=== PATIENT | male | born 1985 | race Caucasian/White ===

== ENCOUNTER → 2019-09-08 10:40 | Outpatient (BNVA) | payer OTHER, SELFPAY | PROVIDERS: Family Provider Emergency Medicine Emergency Medical Services; PCP Emergency Medicine Emergency Medical Services; Visit Provider Nurse Practitioner Family | DX: R50.9 Fever, unspecified (principal); W57.XXXA Bitten or stung by nonvenomous insect and other nonvenomous arthropods, initial encounter; Z68.32 Body mass index [BMI] 32.0-32.9, adult; F17.220 Nicotine dependence, chewing tobacco, uncomplicated; Z71.89 Other specified counseling | CPT/HCPCS: 71046; 87071; 87400; 87880 ==

== ENCOUNTER 2020-01-01 12:43 | Outpatient (CLI) | payer OTHER, SELFPAY ==
--- NOTE | 2020-01-01 12:48 | MR_ITS ---
WS: [id number] MRI LUMBAR SPINE NONCONTRAST HISTORY: LOW BACK PAIN COMPARISON: None available. TECHNIQUE: Sagittal and axial multisequence imaging is submitted. Mild ectopia of the cerebellar tonsils. Mild disc bulging at T11-12 and T12-L1 with minimal cord contact at the T11-12 level. No significant stenosis. Normal lumbar alignment with no compression fractures or marrow edema. Disc spaces and vertebral body heights are well-preserved. Conus terminates normally at L1. L1-L2: Normal. L2-L3: Normal. L3-L4: Mild facet and ligamentum flavum hypertrophy and annular disc bulging. No stenosis. L4-L5: Mild annular disc bulging with moderate ligamentum flavum hypertrophy and facet arthritis. No significant stenosis. L5-S1: Small central disc protrusion and mild annular disc bulging. There is very minimal encroachmen t and narrowing of the RIGHT subarticular recess. There is probably a small disc protrusion with asso ciated annular fissure. Mild ligamentum flavum hypertrophy and facet arthritis. There is very minimal encroachment into the RIGHT subarticular recess. No significant stenosis. Visualized retroperitoneum is negative. MR/MR lumbar spine wo con* [id number] IMPRESSION: 1. No severe central or foraminal stenosis. 2. Mild RIGHT subarticular recess encroachment at L5-S1. Suspect there is a ve ry small disc protrusion and annular fissure causing mild encroachment upon the S1 nerve root. 3. Mild encroachment upon the ventral thecal sac at T11-12.
== END 2020-01-01 12:44 | disposition home or self-care (01) ==
LOC: RADSHAW 12:44
PROVIDERS: PCP Emergency Medicine Emergency Medical Services; Visit Provider Emergency Medicine Emergency Medical Services
DX: M54.5 Low back pain (principal)
CPT/HCPCS: 72148

== ENCOUNTER → 2020-03-17 09:48 | Outpatient (BNVA) | payer OTHER, SELFPAY | PROVIDERS: PCP Emergency Medicine Emergency Medical Services; Visit Provider Licensed Practical Nurse | DX: M51.17 Intervertebral disc disorders with radiculopathy, lumbosacral region (principal); M51.9 Unspecified thoracic, thoracolumbar and lumbosacral intervertebral disc disorder; F17.290 Nicotine dependence, other tobacco product, uncomplicated | CPT/HCPCS: 99204 ==

== ENCOUNTER 2020-03-19 12:48 | Outpatient (CLI) | payer OTHER, SELFPAY ==
--- NOTE | 2020-03-19 13:06 | XR_ITS ---
WS: [id number] Lumbar spine with flexion, extension, and neutral lateral, 03/19/2020 Clinical Data: LOW BACK PAIN Comparison: MRI lumbar spine, 01/01/2020. Findings: No compression fractures or subluxation is seen. No disc space narrowing is seen. No limitation of motion or subluxation is seen. Minimal anterior osteoarthritic spurring is seen at L4 and L5. XR/XR lumbar spine f/e only [id number] Impression: Negative for limitation of motion or subluxation on flexion or extension.
== END 2020-03-19 12:49 | disposition home or self-care (01) ==
LOC: RADWPI 12:52
PROVIDERS: PCP Emergency Medicine Emergency Medical Services; Visit Provider Nurse Practitioner
DX: M54.5 Low back pain (principal)
CPT/HCPCS: 72120

== ENCOUNTER 2020-03-19 13:55 | Outpatient (RCR) | payer OTHER, SELFPAY | END 2020-04-05 23:59 | disposition home or self-care (01) | LOC: SPT 13:55 | PROVIDERS: PCP Emergency Medicine Emergency Medical Services; Visit Provider Emergency Medicine Emergency Medical Services | DX: M54.16 Radiculopathy, lumbar region (principal) | CPT/HCPCS: 97110; 97161 ==

== ENCOUNTER 2020-04-06 06:00 | Outpatient (RCR) | payer OTHER, SELFPAY | END 2020-05-06 23:59 | disposition home or self-care (01) | LOC: SPT 06:00 | PROVIDERS: PCP Emergency Medicine Emergency Medical Services; Visit Provider Emergency Medicine Emergency Medical Services | DX: M54.16 Radiculopathy, lumbar region (principal) | CPT/HCPCS: 97110 ==

== ENCOUNTER 2020-05-07 06:00 | Outpatient (RCR) | payer OTHER, SELFPAY | END 2020-06-06 23:59 | disposition home or self-care (01) | LOC: SPT 06:00 | PROVIDERS: PCP Emergency Medicine Emergency Medical Services; Visit Provider Emergency Medicine Emergency Medical Services | DX: M54.16 Radiculopathy, lumbar region (principal) | CPT/HCPCS: 97110 ==

== ENCOUNTER 2020-06-07 06:00 | Outpatient (RCR) | payer OTHER, SELFPAY | END 2020-06-18 23:00 | disposition home or self-care (01) | LOC: SPT 06:00 | PROVIDERS: PCP Emergency Medicine Emergency Medical Services; Visit Provider Emergency Medicine Emergency Medical Services | DX: M54.16 Radiculopathy, lumbar region (principal) | CPT/HCPCS: 97110 ==

== ENCOUNTER → 2020-06-15 09:48 | Outpatient (BNVA) | payer OTHER, SELFPAY | PROVIDERS: PCP Emergency Medicine Emergency Medical Services; Visit Provider Specialist | DX: M51.17 Intervertebral disc disorders with radiculopathy, lumbosacral region (principal); G43.711 Chronic migraine without aura, intractable, with status migrainosus; M46.1 Sacroiliitis, not elsewhere classified; F17.220 Nicotine dependence, chewing tobacco, uncomplicated | CPT/HCPCS: 99214 ==

== ENCOUNTER 2020-08-30 14:43 | Emergency (ER) | payer OTHER, SELFPAY ==
[2020-08-30 14:47] VITALS: BP 144/91; PULSE 86; RESP 18; TEMP 36.4; O2SAT 96; BMI 30.7
[2020-08-30 17:16] VITALS: BP 145/78; PULSE 75; RESP 16; O2SAT 96
--- NOTE | 2020-08-30 17:16 | ED_ITS ---
HPI - General Adult General: Chief complaint: Abdominal Pain Stated complaint: Poss Hernia Time Seen by Provider: 08/30/20 17:06 History of Present Illness: HPI narrative: Patient strained his upper abdomen muscle wall the other day at work. He did not report work that time. Does continue to bother him with lifting and movement at work and he is worried that he might have a hernia. He has had a hernia in the past that had to be repaired and this is above that area. 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 Surgical History History of hernia surgery History of vasectomy Family History Mother Mcnamara's palsy Social History Smoking and tobacco status: current every day smoker smokeless tobacco Alcohol intake: current service: Yes History of recent travel: No Physical Exam Const: COMMON NORMALS: no acute distress, average body habitus and patient oriented x3 HENMT: COMMON NORMALS: normocephalic HEAD & SCALP: normal to inspection and normocephalic FACE & SINUS: normal facial exam Eye: COMMON NORMALS: conjunctivae normal GENERAL EYE: appearance normal, both eyes and all related structures CONJUNCTIVA: Yes conjunctivae normal Neck/C-Spine: COMMON NORMALS: no JVD Chest: COMMONS NORMALS: normal inspection of the chest Resp: COMMON NORMALS: normal respiratory effort Cardio: COMMON NORMALS: no JVD, regular rate and regular rhythm RATE: regular rate RHYTHM: regular rhythm GI: PALPATION: Yes Tenderness to palpation present (GI) (Under the muscle wall above the umbilicus about 2 inches up and around epig) OTHER: Muscle wall is tender no visible hernia noted Extremity: COMMON NORMALS: normal to inspection and full ROM Neuro: COMMON NORMALS: patient oriented x3 Course Vital Signs: Vital signs: Vital Signs Temperature 97.5 F L 08/30/20 14:47 Pulse Rate 86 08/30/20 14:47 Respiratory Rate 18 08/30/20 14:47 Blood Pressure 144/91 08/30/20 14:47 Pulse Oximetry 96 08/30/20 14:47 MDM - General Adult MDM Narrative: Medical decision making narrative: Presents with a injury that occurred about a week ago worried about having a hernia. Patient does not have a hernia on exam muscle wall intact but it is tender. Discharge Plan Discharge Patient Disposition: Home Clinical Impression: Abdominal muscle strain Qualifiers: Encounter type: initial encounter Qualified Code(s): S39.011A - Strain of muscle, fascia and tendon of abdomen, initial encounter Condition: Stable Prescriptions: New tramadol 50 mg tablet 50 mg PO TID PRN (Reason: pain) Qty: 7 RF: 0 No Action amitriptyline 25 mg tablet 25 mg PO DAILY Qty: 30 RF: 2 meloxicam 15 mg tablet 15 mg PO DAILY RF: 0 omeprazole magnesium [Prilosec OTC] 20 mg tablet,delayed release (DR/EC) 20 mg PO DAILY RF: 0 Discharge Orders: Discharge ED (Routine); Ordered 08/30/20 Ordered By: Cayden Rowan Referrals: Gaetano Reagan DO [Primary Care Provider] - Discharge Diet: Usual diet Discharge Activity: Increase activity as tolerated Patient Instructions: Muscle Strain (ED), Opioid Safety Activity Restrictions/Additional Instructions: Follow-up with medical provider as directed. Take medications as prescribed. Return to the ER or your medical provider if condition worsens. Please read and understand discharge instructions. If any questions ask please. Avoid heavy lifting and straining abdominal muscles for next 14 to 21 days. Can apply moist heat to help with discomfort. Coding Level of Care Code ED Job Spotter for Susanna Christian
[2020-08-30 17:18] LABS: Basophils % 0.3 %; Eosinophils # 0.3 10^3/uL (0.0-0.8); Eosinophils % 3.1 %; Hematocrit 48.7 % (42.0-52.0); Hemoglobin 16.5 g/dL (11.7-16.6); Lymphocytes % 43.6 %; Mean Corpuscular HGB Conc 33.9 g/dL (30.0-36.0); Mean Corpuscular Hemoglobin 28.8 pg (28.0-34.0); Mean Platelet Volume 9.2 fL (7.4-10.4); Monocytes # 0.9 10^3/uL (0.2-0.9); Monocytes % 9.9 %; Neutrophils # 3.92 10^3/uL (1.8-7.7); Neutrophils % 42.9 %; Nucleated Red Blood Cells % 0 %; Platelet Count 260 10^3/cmm (130-400); Red Blood Count 5.73 10^6/uL (4.1-5.3); Red Cell Distribution Width 12.1 % (12.1-15.1); White Blood Count 9.1 10^3/uL (4.0-10.0)
[2020-08-30 17:43] LABS: Lactic Sepsis W/Reflex 1.3 mmol/L (0.5-2.2)
[2020-08-30 17:48] LABS: Alanine Aminotransferase 31 U/L (0-41); Albumin Level 4.5 g/dL (3.5-5.2); Alkaline Phosphatase 44 IU/L (40-130); Anion Gap 13.9 (5-19); Aspartate Amino Transferase 20 U/L (0-40); Blood Urea Nitrogen 17 mg/dL (6-20); Carbon Dioxide 27 mmol/L (22-29); Chloride 103 mmol/L (98-107); Globulin 2.1 g/dL (1.3-4.6); Glomerular Filtration Rate 109.4 mL/min (90-130); Glucose 97 mg/dL (65-115); Osmolality Calculated 291 mOsm/kg (285-295); Potassium 3.9 mmol/L (3.5-5.1); Sodium 140 mmol/L (136-145); Total Bilirubin 0.5 mg/dL (0.15-1.2); Total Protein 6.6 g/dL (6.6-8.7)
== END 2020-08-30 17:22 | disposition home or self-care (01) ==
PROVIDERS: Physician Assistant; Emergency Provider Nurse Practitioner Family; PCP Emergency Medicine Emergency Medical Services
DX: S39.011A Strain of muscle, fascia and tendon of abdomen, initial encounter (principal); F17.210 Nicotine dependence, cigarettes, uncomplicated; X58.XXXA Exposure to other specified factors, initial encounter; Y99.0 Civilian activity done for income or pay
CPT/HCPCS: 80053; 83605; 85025; 99282

== ENCOUNTER → 2020-09-07 07:49 | Outpatient (BNVA) | payer OTHER, SELFPAY | PROVIDERS: PCP Emergency Medicine Emergency Medical Services; Visit Provider Specialist | DX: M51.17 Intervertebral disc disorders with radiculopathy, lumbosacral region (principal); G43.711 Chronic migraine without aura, intractable, with status migrainosus; F17.220 Nicotine dependence, chewing tobacco, uncomplicated | CPT/HCPCS: 99214 ==

== ENCOUNTER 2021-02-16 15:43 | Outpatient (CLI) | payer OTHER, SELFPAY ==
--- NOTE | 2021-02-16 15:45 | USCV_ITS ---
Javi Montes De Oca Age: 36 Gender: M : 1985 Exam Date: 02/16/2021 15:56 Ordering Phys: Patrick Epstein M.D ([email or web address]) Technologist: Eugenie Somers [place] [facility] [place] PALPIT[place] BP: 151 / 90 HR: 78 Rhythm: Sinus Technical Quality: Adequate MEASUREMENTS (Male / Female) Normal Values 2D ECHO LV Diastolic Diameter PLAX 5.0 cm 4.2 - 5.9 / 3.9 - 5.3 cm LV Systolic Diameter PLAX 3.3 cm IVS Diastolic Thickness 0.7 cm 0.6 - 1.0 / 0.6 - 0.9 cm IVS Systolic Thickness 1.8 cm LVPW Diastolic Thickness 1.2 cm 0.6 - 1.0 / 0.6 - 0.9 cm LVPW Systolic Thickness 1.7 cm LVOT Diameter 2.0 cm LV Ejection Fraction 2D Teich 63.3 % LV Ejection Fraction MOD 2C 66.6 % LV Ejection Fraction 2C AL 67.3 % LA Diameter 3.5 cm LA Width 2.9 cm LA Height 3.9 cm RA Width 2.5 cm RA Height 3.7 cm Aorta at Sinotubular Diameter 2.8 cm DOPPLER AV Peak Velocity 107.0 cm/s LVOT Peak Velocity 81.0 cm/s AV Area Cont Eq vti 2.7 cm squared AV Area Cont Eq pk 2.4 cm squared MV Peak Velocity 76.0 cm/s MV Area PHT 3.6 cm squared Mitral E to A Ratio 1.3 MV E' Velocity 39.0 cm/s Mitral E to MV E' Ratio 7.4 Mitral E to LV E' Lateral Ratio 7.4 Mitral E to LV E' Septal Ratio 7.5 TR Peak Velocity 193.3 cm/s TR Peak Gradient 14.9 mmHg TR Mean Velocity 150.9 cm/s TR Mean Gradient 10.4 mmHg TR Velocity Time Integral 47.1 cm TV Peak E Velocity 56.0 cm/s Right Atrial Pressure 3.0 mmHg Pulmonary Artery Systolic Pressu 17.9 mmHg PV Peak Velocity 99.0 cm/s RV Acceleration Time 0.1 s RV Ejection Time 0.3 s RV AcT/ET 0.3 FINDINGS Left Ventricle Normal left ventricular size. LV systolic function is normal with EF of 55-60%. No regional wall motion abnormalities. Normal diastolic filling pattern. Right Ventricle The right ventricle is normal in size and function. Right Atrium The right atrium is normal in size. Left Atrium The left atrium is normal in size. Mitral Valve Structurally normal mitral valve without significant stenosis or prolapse. There is trace mitral regurgitation. Aortic Valve Structurally normal aortic valve without significant sclerosis or stenosis. There is no aortic regurgitation. Tricuspid Valve Structurally normal tricuspid valve without significant stenosis or regurgitation. Insufficient TR jet to calculate RVSP Pulmonic Valve Structurally normal pulmonic valve without significant stenosis. There is no pulmonic regurgitation. Pericardium Normal pericardium without effusion. Aorta Normal ascending aorta dimension. CONCLUSIONS LV systolic function is normal with EF of 55-60% Diastolic function is normal Trace mitral regurgitation No comparison studies are available Patrick Epstein MD (Electronically Signed) Final Date: 19 February 2021 21:40 S
== END 2021-02-16 15:44 | disposition home or self-care (01) ==
LOC: RAD 15:44
PROVIDERS: PCP Emergency Medicine Emergency Medical Services; Visit Provider Internal Medicine
DX: R00.2 Palpitations (principal)
CPT/HCPCS: 93306

== ENCOUNTER → 2021-03-03 10:36 | Outpatient (BNVA) | payer OTHER, SELFPAY | PROVIDERS: PCP Emergency Medicine Emergency Medical Services; Visit Provider Specialist | DX: G43.711 Chronic migraine without aura, intractable, with status migrainosus (principal); Z87.891 Personal history of nicotine dependence | CPT/HCPCS: 99213; 99214 ==

== ENCOUNTER → 2021-07-08 14:41 | Outpatient (BNVA) | payer OTHER, SELFPAY | PROVIDERS: PCP Emergency Medicine Emergency Medical Services; Visit Provider Social Worker | DX: F41.1 Generalized anxiety disorder (principal); F33.1 Major depressive disorder, recurrent, moderate | CPT/HCPCS: 90837 ==

== ENCOUNTER → 2021-09-09 15:50 | Outpatient (BNVA) | payer OTHER, SELFPAY | PROVIDERS: PCP Emergency Medicine Emergency Medical Services; Visit Provider Social Worker | DX: F41.1 Generalized anxiety disorder (principal); F33.1 Major depressive disorder, recurrent, moderate | CPT/HCPCS: 90834 ==

== ENCOUNTER → 2021-10-07 15:50 | Outpatient (BNVA) | payer OTHER, SELFPAY | PROVIDERS: PCP Emergency Medicine Emergency Medical Services; Visit Provider Social Worker | DX: F41.1 Generalized anxiety disorder (principal); F33.1 Major depressive disorder, recurrent, moderate | CPT/HCPCS: 90834 ==

== ENCOUNTER → 2021-11-24 15:39 | Outpatient (BNVA) | payer OTHER, SELFPAY | PROVIDERS: PCP Emergency Medicine Emergency Medical Services; Visit Provider Urology | DX: N50.89 Other specified disorders of the male genital organs (principal) | CPT/HCPCS: 81003; 99213 ==

== ENCOUNTER 2022-03-13 06:16 | Day surgery (SDC) | payer OTHER, SELFPAY ==
[2022-03-10 12:27] VITALS: BMI 32.1
[2022-03-13 06:36] VITALS: BP 128/78; PULSE 65; RESP 16; TEMP 36.2; O2SAT 97
--- NOTE | 2022-03-13 06:38 | P.ANESASSM_ITS ---
Pre-Anesthetic Assessment Height/Weight: Height 1.8 m Weight 104.326 kg Preop Diagnosis: GERD Operation Date: 03/13/22 08:00 Proposed Procedures p EGD 88435 K21.9(Not Applicable) - Eyad Aguila MD Familial anesthetic complications: None Was Beta Conor taken within 24 hours: N/A Was Clonidine taken within 24 hours: N/A Last Intake: 22:00 (03/12) Social Alcohol (Social) and Tobacco (Dip) Exam alert, oriented x 3, clear to auscultation bilaterally and regular rate & rhythm Airway Submandibular: within normal limits (TMJ) Cervical ROM: within normal limits Mallampati: Class III Dentition: chipped (Front teeth have been broken but fixed now. 3 chipped teeth per patient) History/ROS No significant history except as noted and No significant complaints Pulmonary Sleep Apnea CV/HEM None reported None reported Hepatic None reported GI Gastroesophageal Reflux Disease (Controlled with meds, none this am) Metabolic None reported Musc/skel Lower Back Pain Neuropsych None reported Anesthetic Plan ASA status: 1 Anesthesia: Anesthesia Evaluation, General and MAC Risk of > 500 ml blood loss (7ml/kg in children): No Medications/Allergies Home Medications Medication Instructions Recorded Confirmed Last Taken Type omeprazole magnesium 20 mg 20 mg PO DAILY 11/24/21 03/13/22 03/12/22 History tablet,delayed release (Prilosec OTC) Allergies Allergy/AdvReac Type Severity Reaction Status Date / Time No Known Allergies Allergy Verified 11/24/21 15:42 [facility] Anesthesia Medical History (Updated 03/09/22 @ 12:01 by Marissa Quiroz LPN) Intervertebral disc disorder with radiculopathy of lumbosacral region Psychiatric care Thoracic disc disease Surgical History History of hernia surgery History of vasectomy Family History Mother Mcnamara's palsy Social History Smoking and tobacco status: never smoked Alcohol intake: current Alcohol intake frequency: holidays/special occasions only Marital status: service: Yes Current occupational status: employed History of recent travel: No Data Anesthesia Cardiac Studies: Echocardiogram 02/16/21 Cardiac Event Monitor 12/15/20
[2022-03-13] MEDS: sodium chloride 0.9% 1,000 ML 30 ML IV (06:48)
--- NOTE | 2022-03-13 08:01 | W.PM.OPSFHP ---
Same Day Surgery H&P Indication for Procedure/HPI DATE OF PROCEDURE: March 13, 2022 CHIEF COMPLAINT/INDICATIONFOR SURGICAL PROCEDURE: Epigastric pain PREOP DIAGNOSIS: GERD PLANNED PROCEDURE: Operation Date: 03/13/22 08:00 Proposed Procedures p EGD 27128 K21.9(Not Applicable) - Eyad Aguila MD Medications/Allergies* Home Medications Medication Instructions Recorded Confirmed Type omeprazole magnesium 20 mg 20 mg PO DAILY 11/24/21 03/13/22 History tablet,delayed release (Prilosec OTC) Allergies/Adverse Reactions Allergy/AdvReac Type Severity Reaction Status Date / Time No Known Allergies Allergy Verified 11/24/21 15:42 Current Medications: Generic Name Dose Route Start Last Admin Trade Name Freq PRN Reason Stop Dose Admin Sodium Chloride 1,000 mls @ 30 mls/hr 03/13/22 06:30 03/13/22 06:48 Sodium Chloride 0.9% IV 03/14/22 06:29 30 mls/hr .Q24H PAPI Administration Pertinent History/Comorbid Conditions* Medical History (Updated 11/24/21 @ 16:27 by Tami Sidhu APRN) Intervertebral disc disorder with radiculopathy of lumbosacral region Psychiatric care Thoracic disc disease Surgical History (Updated 03/17/20 @ 15:28 by Beverly Davis APRN) History of hernia surgery History of vasectomy Family History (Updated 03/17/20 @ 10:25 by Mary Kate Pulido LPN) Mcnamara's palsy Mother Social History Smoking and tobacco status: never smoked Alcohol intake: current Alcohol intake frequency: holidays/special occasions only Marital status: service: Yes Current occupational status: employed History of recent travel: No Pertinent Exam Findings alert, oriented x 3, clear to auscultation bilaterally, regular rate & rhythm, operative site marked and procedure specific exam findings Recommendations Surgery/Procedure today Coding Level of Care Code Acute Exhibition Designer for Susanna Christian
[2022-03-13 08:05] VITALS: BP 113/76; PULSE 78; RESP 18; TEMP 36.3; O2SAT 93
[2022-03-13 08:20] VITALS: BP 109/68; PULSE 71; RESP 16; O2SAT 98
--- NOTE | 2022-03-13 12:56 | ANE.PACU2 ---
Inpatient post-anesthesia follow up: Airway intact: Yes Vital signs: Temperature 97.3 F Pulse Rate 71 Respiratory Rate 16 Blood Pressure 109/68 Pulse Oximetry 98 Oxygen Delivery Me thod Room Air Oxygen Flow Rate Fraction of Inspir ed Oxygen Hydration adequate: Yes Nausea and vomiting: No Pain level: 1 Mental status: Baseline
[2022-03-14 12:39] LABS: H. Pylori / CLO Test Negative
== END 2022-03-13 08:38 | disposition home or self-care (01) ==
PROVIDERS: PCP Emergency Medicine Emergency Medical Services; Visit Provider Internal Medicine
PROC: 0DJ08ZZ Inspection of Upper Intestinal Tract, Via Natural or Artificial Opening Endoscopic (ICD-10-PCS; CPT 43235; principal; 2022-03-13 08:00)
DX: K21.9 Gastro-esophageal reflux disease without esophagitis (principal); K44.9 Diaphragmatic hernia without obstruction or gangrene; K29.70 Gastritis, unspecified, without bleeding; G47.30 Sleep apnea, unspecified
CPT/HCPCS: 43239; 87077; J2704; J7030

== ENCOUNTER 2023-03-23 13:17 | Outpatient (CLI) | payer OTHER, SELFPAY ==
--- NOTE | 2023-03-23 13:24 | US_ITS ---
WS: [id number] THYROID ULTRASOUND HISTORY: ELEVATED TSH COMPARISON: None available. Right lobe: 2.4 cm x 2.3 cm x 6.3 cm (w x ap x l). Volume: 18.7 cm3. Enlarged heterogeneous nodular thyroid without discrete mass. No echogenic foci. There are several fi brous septa throughout the gland. Mild increased vascularity. Left lobe: 1.9 cm x 2.0 cm x 5.9 cm (w x ap x l). Volume: 12.1 cm3. Enlarged heterogeneous nodular gland. There are multiple small hypoechoic nodules. Mild increased vas cularity. Echogenic fibrous septa. Isthmus: 0.7 cm. IMPRESSION: 1. Thyromegaly with changes of Contreras's thyroiditis. 2. No dominant or suspicious nodule.
== END 2023-03-23 13:18 | disposition home or self-care (01) ==
LOC: RAD 13:17
PROVIDERS: PCP Emergency Medicine Emergency Medical Services; Visit Provider Nurse Practitioner
DX: E01.0 Iodine-deficiency related diffuse (endemic) goiter (principal); R94.6 Abnormal results of thyroid function studies
CPT/HCPCS: 76536

== ENCOUNTER 2023-06-22 07:51 | Outpatient (CLI) | payer OTHER, SELFPAY ==
--- NOTE | 2023-06-22 08:03 | MR_ITS ---
WS: [id number] MRI HEAD WITH CONTRAST TECHNIQUE: Sagittal T1, T2 axial, T2 axial FLAIR, axial susceptibility weighted imaging, axial diffus ion weighted images, and coronal T2 images were obtained. Pre and post-T1 axial and post T1 coronal i mages. ADC and FSPGR images. CLINICAL INFORMATION: ABNORMAL TSH LEVEL WITH MEDICATION COMPARISON: None. FINDINGS: No evidence of restricted diffusion to suggest acute ischemia. Ventricular system and basilar cistern s are patent. No suspicious intracranial signal abnormalities. Normal nelson-white differentiation. No significant parenchymal volume loss. Normal posterior fossa. Normal vascular flow voids at the skull base. No extra-axial fluid collections. No evidence of mass or mass effect. Mild mucosal thickening i n the paranasal sinuses. Mastoid air cells are well aerated. No hemosiderin on the susceptibly weighted images. Normal optic chiasm and pituitary infundibulum. No rmal cavernous sinuses and Meckel's cave. No evidence of sellar or suprasellar mass. Minimal incident al low-lying cerebellar tonsils. No abnormal intracranial enhancement. Normal dural venous sinuses. Normal homogeneous pituitary enhan cement. IMPRESSION: 1. No evidence of restricted diffusion to suggest acute ischemia. 2. No suspicious intracranial signal abnormalities. No significant parenchymal volume loss. 3. Incidental slightly low-lying cerebellar tonsils. 4. No abnormal gadolinium enhancement. 5. Normal sella. Normal optic chiasm and pituitary infundibulum. 6. No other suspicious findings.
[2023-06-22] MEDS: gadobenate dimeglumine 20 mL vial IV (08:49)
== END 2023-06-22 07:52 | disposition home or self-care (01) ==
LOC: RAD 07:51
PROVIDERS: PCP Emergency Medicine Emergency Medical Services; Visit Provider Nurse Practitioner
DX: R94.6 Abnormal results of thyroid function studies (principal)
CPT/HCPCS: 70553; A9577

== ENCOUNTER 2023-07-13 09:57 | Outpatient (CLI) | payer OTHER, SELFPAY ==
--- NOTE | 2023-07-13 10:20 | XR_ITS ---
WS: [id number] Cervical spine, 5 views including both obliques, 07/13/2023 Clinical Data: CERVICAL SPINE PAIN Comparison: None. Findings: No compression fractures are seen. The disc heights are normal. There is no prevertebral so ft tissue swelling. The odontoid is unremarkable. The soft tissues of the neck and the lung apices ar e normal. The oblique images show no foraminal narrowing. Impression: Negative cervical spine including both obliques.
--- NOTE | 2023-07-13 10:20 | XR_ITS ---
WS: [id number] Sinus series, 4 views, 07/13/2023 Clinical Data: SINUSITIS Comparison: None. Findings: The sinuses are clear. There are no air-fluid levels or mucoperiosteal thickening. No bone destructio n or erosion is seen. The orbits are intact with no erosions. The sella turcica is normal and there a re no abnormal intracranial calcifications. Impression: Negative sinus series.
== END 2023-07-13 09:58 | disposition home or self-care (01) ==
PROVIDERS: PCP Emergency Medicine Emergency Medical Services; Visit Provider Nurse Practitioner Family
DX: J32.9 Chronic sinusitis, unspecified (principal); M54.2 Cervicalgia
CPT/HCPCS: 70210; 72050

== ENCOUNTER → 2023-10-17 11:45 | Outpatient (BNVA) | payer OTHER, SELFPAY | PROVIDERS: PCP Emergency Medicine Emergency Medical Services; Referring Provider Nurse Practitioner; Visit Provider Internal Medicine | DX: E06.3 Autoimmune thyroiditis (principal); Z79.890 Hormone replacement therapy | CPT/HCPCS: 99204 ==

== ENCOUNTER 2023-11-21 06:59 | Outpatient (CLI) | payer OTHER, SELFPAY ==
[2023-11-21 07:50] LABS: Free T4 Free Thyroxine 1.46 ng/dL (0.82-1.77); Thyroid Stimulating Hormone 15.24 uIU/mL (0.27-4.20)
== END 2023-11-21 07:00 | disposition home or self-care (01) ==
PROVIDERS: PCP Emergency Medicine Emergency Medical Services; Visit Provider Internal Medicine
DX: E03.9 Hypothyroidism, unspecified (principal)
CPT/HCPCS: 36415; 84439; 84443

== ENCOUNTER → 2023-11-28 09:54 | Outpatient (BNVA) | payer OTHER, SELFPAY | PROVIDERS: PCP Emergency Medicine Emergency Medical Services; Visit Provider Internal Medicine | DX: E06.3 Autoimmune thyroiditis (principal); R63.5 Abnormal weight gain; Z79.890 Hormone replacement therapy; Z68.33 Body mass index [BMI] 33.0-33.9, adult | CPT/HCPCS: 99214 ==

== ENCOUNTER 2023-12-28 10:31 | Outpatient (CLI) | payer OTHER, SELFPAY ==
[2023-12-28 11:29] LABS: Free T4 Free Thyroxine 1.59 ng/dL (0.82-1.77); Thyroid Stimulating Hormone 10.56 uIU/mL (0.27-4.20)
== END 2023-12-28 10:32 | disposition home or self-care (01) ==
LOC: LAB 10:32
PROVIDERS: PCP Nurse Practitioner; Visit Provider Internal Medicine
DX: E03.9 Hypothyroidism, unspecified (principal); E06.3 Autoimmune thyroiditis
CPT/HCPCS: 36415; 84439; 84443

== ENCOUNTER → 2024-01-04 07:57 | Outpatient (BNVA) | payer OTHER, SELFPAY | PROVIDERS: PCP Nurse Practitioner; Visit Provider Internal Medicine | DX: E06.3 Autoimmune thyroiditis (principal); R63.5 Abnormal weight gain; Z79.890 Hormone replacement therapy; Z68.32 Body mass index [BMI] 32.0-32.9, adult | CPT/HCPCS: 99214 ==

== ENCOUNTER 2024-02-11 06:51 | Outpatient (CLI) | payer OTHER, SELFPAY ==
[2024-02-11 07:58] LABS: Free T4 Free Thyroxine 1.61 ng/dL (0.82-1.77)
== END 2024-02-11 06:52 | disposition home or self-care (01) ==
LOC: LAB 06:52
PROVIDERS: PCP Nurse Practitioner; Visit Provider Internal Medicine
DX: E03.9 Hypothyroidism, unspecified (principal); E06.3 Autoimmune thyroiditis
CPT/HCPCS: 36415; 84439; 84443

== ENCOUNTER → 2024-02-14 09:45 | Outpatient (BNVA) | payer OTHER, SELFPAY | PROVIDERS: PCP Nurse Practitioner; Visit Provider Internal Medicine | DX: E06.3 Autoimmune thyroiditis; R63.5 Abnormal weight gain; S46.009A Unspecified injury of muscle(s) and tendon(s) of the rotator cuff of unspecified shoulder, initial encounter; X58.XXXA Exposure to other specified factors, initial encounter; Z79.890 Hormone replacement therapy; Z68.33 Body mass index [BMI] 33.0-33.9, adult | CPT/HCPCS: 99214 ==

== ENCOUNTER → 2024-03-24 15:24 | Outpatient (BNVA) | payer OTHER, SELFPAY | PROVIDERS: Visit Provider Nurse Practitioner | DX: R22.31 Localized swelling, mass and lump, right upper limb | CPT/HCPCS: 73130 ==

== ENCOUNTER 2024-03-24 16:18 | Outpatient (CLI) | payer OTHER, SELFPAY | END 2024-03-24 16:19 | disposition home or self-care (01) | LOC: LAB 16:20 | PROVIDERS: PCP Nurse Practitioner; Visit Provider Internal Medicine | DX: E03.9 Hypothyroidism, unspecified (principal) | CPT/HCPCS: 36415; 84439; 84443 ==

== ENCOUNTER → 2024-03-27 09:54 | Outpatient (BNVA) | payer OTHER, SELFPAY | PROVIDERS: PCP Nurse Practitioner; Visit Provider Internal Medicine | DX: E06.3 Autoimmune thyroiditis; R63.5 Abnormal weight gain; S46.009A Unspecified injury of muscle(s) and tendon(s) of the rotator cuff of unspecified shoulder, initial encounter; R00.2 Palpitations; R53.83 Other fatigue; X58.XXXA Exposure to other specified factors, initial encounter; E29.1 Testicular hypofunction; Z79.890 Hormone replacement therapy; Z68.33 Body mass index [BMI] 33.0-33.9, adult | CPT/HCPCS: 99214 ==

== ENCOUNTER 2024-03-27 14:23 | Outpatient (RCR) | payer OTHER, SELFPAY | END 2024-04-05 23:59 | disposition home or self-care (01) | LOC: SPT 14:23 | PROVIDERS: PCP Nurse Practitioner; Visit Provider Nurse Practitioner | DX: M75.42 Impingement syndrome of left shoulder (principal) | CPT/HCPCS: 97110; 97161 ==

== ENCOUNTER 2024-04-06 06:00 | Outpatient (RCR) | payer OTHER, SELFPAY | END 2024-05-06 23:59 | disposition home or self-care (01) | LOC: SPT 06:00 | PROVIDERS: PCP Nurse Practitioner; Visit Provider Nurse Practitioner | DX: M75.42 Impingement syndrome of left shoulder (principal) | CPT/HCPCS: 97110 ==

== ENCOUNTER 2024-04-08 08:15 | Outpatient (CLI) | payer OTHER, SELFPAY ==
--- NOTE | 2024-04-08 08:30 | US_ITS ---
WS: [id number] INDICATION: Finger nodule TECHNIQUE: Ultrasound soft tissue of concern FINDINGS: Ultrasound soft tissue area of concern RIGHT index finger. Cystic lesion with a small amoun t of internal debris in the area of concern measuring 4 x 3 mm. This may represent a ganglion cyst. R ecommend correlation with clinical history and location adjacent to the joint. US/US soft tissue/extremity [id number] IMPRESSION: See above
== END 2024-04-08 08:16 | disposition home or self-care (01) ==
LOC: RAD 08:15
PROVIDERS: PCP Nurse Practitioner; Visit Provider Nurse Practitioner
DX: M71.341 Other bursal cyst, right hand (principal)
CPT/HCPCS: 76882

== ENCOUNTER 2024-05-07 06:00 | Outpatient (RCR) | payer OTHER, SELFPAY | END 2024-06-06 23:59 | disposition home or self-care (01) | LOC: SPT 06:00 | PROVIDERS: PCP Nurse Practitioner; Visit Provider Nurse Practitioner | DX: M75.42 Impingement syndrome of left shoulder (principal) | CPT/HCPCS: 97110 ==

== ENCOUNTER → 2024-05-14 08:15 | Outpatient (BNVA) | payer OTHER, SELFPAY | PROVIDERS: PCP Nurse Practitioner; Visit Provider Nurse Practitioner | DX: R22.31 Localized swelling, mass and lump, right upper limb (principal); M67.441 Ganglion, right hand | CPT/HCPCS: 99213 ==

== ENCOUNTER 2024-05-30 10:50 | Outpatient (CLI) | payer OTHER, SELFPAY ==
[2024-05-30 11:50] LABS: Free T4 Free Thyroxine 2.15 ng/dL (0.82-1.77); Testosterone Total 318.2 ng/dL (249-836); Thyroid Stimulating Hormone 0.08 uIU/mL (0.27-4.20)
== END 2024-05-30 10:51 | disposition home or self-care (01) ==
LOC: LAB 10:51
PROVIDERS: PCP Nurse Practitioner; Visit Provider Internal Medicine
DX: E03.9 Hypothyroidism, unspecified (principal); E29.1 Testicular hypofunction
CPT/HCPCS: 36415; 84403; 84439; 84443

== ENCOUNTER → 2024-06-02 10:21 | Outpatient (BNVA) | payer OTHER, SELFPAY | PROVIDERS: PCP Nurse Practitioner; Visit Provider Internal Medicine | DX: E03.9 Hypothyroidism, unspecified (principal); E06.3 Autoimmune thyroiditis; R63.5 Abnormal weight gain; R00.2 Palpitations; R53.83 Other fatigue; K08.89 Other specified disorders of teeth and supporting structures | CPT/HCPCS: 99214 ==

== ENCOUNTER 2024-06-07 06:00 | Outpatient (RCR) | payer OTHER, SELFPAY | END 2024-06-30 08:22 | disposition home or self-care (01) | LOC: SPT 06:00 | PROVIDERS: PCP Nurse Practitioner; Visit Provider Nurse Practitioner | DX: M75.42 Impingement syndrome of left shoulder (principal) | CPT/HCPCS: 97110 ==

== ENCOUNTER 2024-07-11 09:00 | Outpatient (CLI) | payer OTHER, SELFPAY ==
[2024-07-11 09:51] LABS: Free T4 Free Thyroxine 2.37 ng/dL (0.82-1.77); Thyroid Stimulating Hormone 0.74 uIU/mL (0.27-4.20)
== END 2024-07-11 09:01 | disposition home or self-care (01) ==
LOC: LAB 09:01
PROVIDERS: PCP Nurse Practitioner; Visit Provider Internal Medicine
DX: E03.9 Hypothyroidism, unspecified (principal)
CPT/HCPCS: 36415; 84439; 84443

== ENCOUNTER 2024-08-06 14:14 | Outpatient (CLI) | payer OTHER, SELFPAY ==
--- NOTE | 2024-08-06 14:16 | MR_ITS ---
WS: [id number] MRI LUMBAR SPINE NONCONTRAST TECHNIQUE: Sagittal T1, T2 and STIR imaging. Axial T1 and T2 imaging. CLINICAL INFORMATION: LOW BACK PAIN COMPARISON: MRI 2020 FINDINGS: Mild lumbar curve. No acute compression. No high-grade central canal stenosis. Mild annular bulging at T11-T12 and T12-L1. L1-L2: Mild annular bulging. Mild facet arthropathy. L2-L3: Mild annular bulging. Mild facet arthropathy. Spinal canal and foramina are patent. L3-L4: Mild annular bulging. Mild facet arthropathy. Spinal canal and foramina are patent. L4-L5: Mild annular bulging with impingement on the RIGHT subarticular recess and traversing RIGHT L5 nerve root. Mild facet arthropathy. Foramina are patent. L5-S1: Mild annular bulging. Slight impingement RIGHT subarticular recess and RIGHT S1 nerve root. Mild facet arthropathy. Foramina are patent. Visualized pelvic bony structures: Normal. Paravertebral soft tissues: Normal. MR/MR lumbar spine wo con* [id number] IMPRESSION: 1. Mild lumbar curve. No acute compression. No high-grade central canal stenos is. 2. Mild annular bulging L4-5 with impingement RIGHT subarticular recess and tr aversing RIGHT L5 nerve root. This is slightly progressed compared to previous. 3. Disc bulge L5-S1 with impingement on the RIGHT S1 nerve root in the subarti cular recess. This appears progressed compared to previous.
== END 2024-08-06 14:15 | disposition home or self-care (01) ==
LOC: RAD 14:14
PROVIDERS: PCP Nurse Practitioner; Visit Provider Nurse Practitioner
DX: M47.896 Other spondylosis, lumbar region (principal); M51.369 Other intervertebral disc degeneration, lumbar region without mention of lumbar back pain or lower extremity pain; M43.8X6 Other specified deforming dorsopathies, lumbar region; R93.7 Abnormal findings on diagnostic imaging of other parts of musculoskeletal system; M51.379 Other intervertebral disc degeneration, lumbosacral region without mention of lumbar back pain or lower extremity pain; M51.34 Other intervertebral disc degeneration, thoracic region; M51.35 Other intervertebral disc degeneration, thoracolumbar region; M47.897 Other spondylosis, lumbosacral region
CPT/HCPCS: 72148

== ENCOUNTER → 2024-08-14 14:38 | Outpatient (BNVA) | payer OTHER, SELFPAY | PROVIDERS: PCP Nurse Practitioner; Referring Provider Nurse Practitioner; Visit Provider Nurse Practitioner Family | DX: M54.42 Lumbago with sciatica, left side (principal); M54.41 Lumbago with sciatica, right side; G89.29 Other chronic pain | CPT/HCPCS: 99214 ==

== ENCOUNTER 2024-08-25 15:06 | Outpatient (CLI) | payer OTHER, SELFPAY ==
[2024-08-25 16:02] LABS: Free T4 Free Thyroxine 1.86 ng/dL (0.82-1.77); Thyroid Stimulating Hormone 5.03 uIU/mL (0.27-4.20)
== END 2024-08-25 15:07 | disposition home or self-care (01) ==
PROVIDERS: PCP Nurse Practitioner; Visit Provider Internal Medicine
DX: M79.18 Myalgia, other site (principal); M54.42 Lumbago with sciatica, left side; M54.41 Lumbago with sciatica, right side; G89.29 Other chronic pain; Z87.891 Personal history of nicotine dependence; E03.9 Hypothyroidism, unspecified
CPT/HCPCS: 20553; 36415; 84439; 84443; 99214; J1010; J3490

== ENCOUNTER → 2024-08-29 08:28 | Outpatient (BNVA) | payer OTHER, SELFPAY | PROVIDERS: PCP Nurse Practitioner; Visit Provider Internal Medicine | DX: E03.9 Hypothyroidism, unspecified (principal); E06.3 Autoimmune thyroiditis; R63.5 Abnormal weight gain; R00.2 Palpitations; R53.83 Other fatigue | CPT/HCPCS: 99214 ==

== ENCOUNTER → 2024-09-08 14:55 | Outpatient (BNVA) | payer OTHER, SELFPAY | PROVIDERS: PCP Nurse Practitioner; Visit Provider Nurse Practitioner Family | DX: M54.42 Lumbago with sciatica, left side (principal); M54.41 Lumbago with sciatica, right side; G89.29 Other chronic pain | CPT/HCPCS: 99213 ==

== ENCOUNTER → 2024-10-06 09:33 | Outpatient (BNVA) | payer OTHER, SELFPAY | PROVIDERS: PCP Nurse Practitioner; Visit Provider Nurse Practitioner Family | DX: M54.42 Lumbago with sciatica, left side (principal); M54.41 Lumbago with sciatica, right side; G89.29 Other chronic pain | CPT/HCPCS: 99214 ==

== ENCOUNTER 2024-10-10 13:17 | Outpatient (CLI) | payer OTHER, SELFPAY ==
[2024-10-10 14:17] LABS: Free T4 Free Thyroxine 1.87 ng/dL (0.82-1.77); Thyroid Stimulating Hormone 9.01 uIU/mL (0.27-4.20)
== END 2024-10-10 13:18 | disposition home or self-care (01) ==
LOC: LAB 13:19
PROVIDERS: PCP Nurse Practitioner; Visit Provider Internal Medicine
DX: E03.9 Hypothyroidism, unspecified (principal)
CPT/HCPCS: 36415; 84439; 84443

== ENCOUNTER → 2024-10-15 11:16 | Outpatient (BNVA) | payer OTHER, SELFPAY | PROVIDERS: PCP Nurse Practitioner; Visit Provider Internal Medicine | DX: E03.9 Hypothyroidism, unspecified (principal); E06.3 Autoimmune thyroiditis; R63.5 Abnormal weight gain; R00.2 Palpitations; R53.83 Other fatigue | CPT/HCPCS: 99214 ==

== ENCOUNTER → 2024-10-21 13:36 | Outpatient (BNVA) | payer OTHER, SELFPAY | PROVIDERS: PCP Nurse Practitioner; Visit Provider Anesthesiology Pain Medicine | DX: M54.16 Radiculopathy, lumbar region (principal); M54.42 Lumbago with sciatica, left side; M54.41 Lumbago with sciatica, right side; G89.29 Other chronic pain; M54.9 Dorsalgia, unspecified | CPT/HCPCS: 64483; 64484; J1100; J3490; J9999 ==

== ENCOUNTER 2024-11-03 08:27 | Oncology outpatient (recurring) (ONCR) | payer OTHER, SELFPAY ==
[2024-11-03] MEDS: levothyroxine 200 mcg SDV 600 MCG IM (09:08)
[2024-11-03 09:13] VITALS: BP 130/83; PULSE 70; RESP 16; TEMP 37.1; O2SAT 98
[2024-11-03 15:53] VITALS: BP 130/70; PULSE 76; RESP 16; O2SAT 99
== END 2024-11-03 23:59 | disposition home or self-care (01) ==
PROVIDERS: PCP Nurse Practitioner; Visit Provider Internal Medicine
DX: E03.9 Hypothyroidism, unspecified (principal); E06.3 Autoimmune thyroiditis; Z79.899 Other long term (current) drug therapy; R63.5 Abnormal weight gain; S46.009A Unspecified injury of muscle(s) and tendon(s) of the rotator cuff of unspecified shoulder, initial encounter; X58.XXXA Exposure to other specified factors, initial encounter; R00.2 Palpitations; R53.83 Other fatigue; K08.89 Other specified disorders of teeth and supporting structures; R42 Dizziness and giddiness
CPT/HCPCS: 96372; 99214; J0650

== ENCOUNTER → 2024-11-04 07:59 | Outpatient (BNVA) | payer OTHER, SELFPAY | PROVIDERS: PCP Nurse Practitioner; Visit Provider Nurse Practitioner Family | DX: M54.42 Lumbago with sciatica, left side (principal); M54.41 Lumbago with sciatica, right side; G89.29 Other chronic pain | CPT/HCPCS: 99214 ==

== ENCOUNTER 2024-11-06 08:13 | Outpatient (CLI) | payer OTHER, SELFPAY ==
[2024-11-06 09:05] LABS: Free T4 Free Thyroxine 1.68 ng/dL (0.82-1.77)
== END 2024-11-06 08:14 | disposition home or self-care (01) ==
LOC: LAB 08:15
PROVIDERS: PCP Nurse Practitioner; Visit Provider Internal Medicine
DX: E03.9 Hypothyroidism, unspecified (principal)
CPT/HCPCS: 36415; 84439

== ENCOUNTER → 2024-11-18 13:59 | Outpatient (BNVA) | payer OTHER, SELFPAY | PROVIDERS: PCP Nurse Practitioner; Visit Provider Anesthesiology Pain Medicine | DX: M54.16 Radiculopathy, lumbar region (principal); M54.9 Dorsalgia, unspecified; M54.40 Lumbago with sciatica, unspecified side | CPT/HCPCS: 64483; 64484; J1100; J3490; J9999 ==

== ENCOUNTER → 2024-11-28 08:53 | Outpatient (BNVA) | payer OTHER, SELFPAY | PROVIDERS: PCP Nurse Practitioner; Visit Provider Nurse Practitioner Family | DX: M54.42 Lumbago with sciatica, left side (principal); M54.41 Lumbago with sciatica, right side; G89.29 Other chronic pain | CPT/HCPCS: 99214 ==

== ENCOUNTER 2024-12-04 14:56 | Oncology outpatient (recurring) (ONCR) | payer OTHER, SELFPAY ==
[2024-11-13] MEDS: levothyroxine 200 mcg SDV 600 MCG IM (14:18)
--- NOTE | 2024-11-13 17:11 | PC.NURSE ---
Patient developed nerve or possibly muscle spasm during injections in deltoid muscles. Patient relays that the shots are very painful and result in soreness for prolonged periods of time. Discussed with pharmacist my concerns with patients symptoms and complaints of pain at injections sites, requested alternative administration routes moving forward with this patients ordered weekly treatments.
[2024-11-20] MEDS: levothyroxine 200 mcg SDV 600 MCG IM (15:05)
[2024-11-20 15:14] VITALS: BP 132/61; PULSE 80; RESP 16; TEMP 36.6; O2SAT 96
[2024-11-27 08:09] VITALS: BP 128/77; PULSE 79; RESP 18; TEMP 36.6; O2SAT 92
[2024-11-27] MEDS: levothyroxine 200 mcg SDV 600 MCG IM (08:20)
[2024-12-04] MEDS: levothyroxine 200 mcg SDV 600 MCG IM (15:27)
== END 2024-12-04 23:59 | disposition home or self-care (01) ==
PROVIDERS: PCP Nurse Practitioner; Visit Provider Internal Medicine
DX: E03.9 Hypothyroidism, unspecified (principal); Z79.899 Other long term (current) drug therapy
CPT/HCPCS: 96372; J0650

== ENCOUNTER 2024-12-09 09:29 | Emergency (ER) | payer OTHER, SELFPAY ==
--- OUTSIDE RECORDS SUMMARY | 2024-12-02 06:49 | XMS_ITS | Encounter Summary ---
Author Name [facility] [place] Address [address] [place] [address] Care Team Providers Care Shipping Coordinator Name Role Phone FELIPE SOLO Primary Care Provider Unavail able Insurance Providers: All historical and current Section Date Range: From patient's date of to the date document was created. This section includes the names of all active insurance providers for the patient. Insurance Provider Type of Coverage Plan Name Start of Policy Coverage End of Policy Coverage Group Number Member ID Insurance Provider's Telephone Number Policy Cho's Name Patient's Relationship to Policy Cho CIGNA HIGH DEDUCTIBL E HEALTH PLAN W/HEALTH SAVINGS ACCOUNT DANIELLE CHATMANI [employer] Jul 06, 2023 [id number] SETH MCDOWELL PATIENT CIGNA BEHAVIORAL HEALTH MENTAL HEALTH STORM SERVI [employer] Jul 06, 2023 [id number] SETH MCDOWELL PATIENT MEDCO (EXPRESS SCRIPTS) PRESCRIPT ION STORM SERVI JOSUE FER Jul 06, 2023 [id number] [phone] SETH MCDOWELL PATIENT Selected Encounter This section includes the information on record at [place] for the Encounter. Date/Time Encounter Type Encounter Description Reason Pro vider Source Dec 02, 2024 11:49 AM Outpatient Encounter COMMUNITY CARE CONSULT IHE Encounter Template Text not used by [place] Plan of Treatment: Future Appointments (+ 6 months) and Future Tests (+/- 45 days) The Plan of Treatment section includes future care activities for the patient from all [place] [facility]. This section includes future appointments and future orders which are active, pending or scheduled. Future Appointments This section includes appointments that were scheduled to occur 6 months from the date of the Encounter, up to a maximum of 20 appointments. The data comes from all [place] treatment facilities. Appointment Date/Time Appointment Type Appointme nt Facility Name Dec 12, 2024 08:30 AM AMBULATORY - MEDICINE [facility] Mar 06, 2025 08:30 AM AMBULATORY - MEDICINE [facility] Active, Pending, and Scheduled Orders This section includes a listing of several types of active, pending, and scheduled orders, including clinic medications orders, diagnostic test orders, procedure orders and consult orders; where the start date of the order is 45 days before the date of the Encounter or 45 days after the date of theEncounter. The data comes from all [place] treatment facilities. Test Date/Time Test Type Test Details Facility Name Nov 27, 2024 12:26 PM Consult Order COMMUNITY CARE-ENDOCRINOLOGY [id number] Cons Laundry Machine Operator's Choice [facility] Dec 05, 2024 02:22 PM Consult Order COMMUNITY CARE-CHIROPRACTIC [id number] [facility] Laundry Machine Operator's Choice [facility] Advance Directives: All historical and current Section Date Range: From patient's date of to the date document was created. This section includes ALL of a patient's completed or amended [place] Advance and Rescinded Directives. The entries below indicate that a directive exists for the patient, but an actual copy is not included with this document. The data comes from all [facility]. Date Advance Directives Provider Source Oct 24, 2011 ADVANCE DIRECTIVE BOLIVAR SCHROEDER TEVIN IS [facility] Aug 02, 2011 ADVANCE DIRECTIVE DISCUSSION JEMMA DONALDSON [facility] Encounter Notes: All associated encounter notes This section contains the clinical notes associated to the Encounter. Date/Time Encounter Note(s) Provider Source Dec 02, 2024 11:49 AM LETTERS: LOCAL TITLE: COMMUNITY CARE-REFERRAL PB (AUTO-PRINT) STANDARD TITLE: LETTERS DATE OF NOTE: DEC 02, 2024@11:49:24 ENTRY DATE: DEC 02, 2024@11:49:24 AUTHOR: LOCO DEMPSEY COSIGNER: URGENCY: STATUS: COMPLETED Javi Mcdowell [facility] [place], [place] [address] Dear JAVI MCDOWELL, Your VA provider has referred you to a provider within the community for care. Your medical care for ENDOCRINOLOGY has been authorized with the Community Care Provider listed below. DO NOT REPORT TO THE [place] MEDICAL CENTER Provider info: UPDATED An appointment has been scheduled for you on: Nov 27, 2024 08:00 AM Office Name: [facility] Address: [address] [place] [address] Address: [place] [address] Auth #: [id number] Referral Issue Date: 2024-11-27 Expiration Date: 2025-05-26 If you are unable to keep this appointment or the appointment is no longer needed, please contact the community provider above for notification/rescheduling and then call the Fadi Martinez [place] Community Care Office at [phone] Ext [phone]. If you need additional care/services not mentioned above, please contact your primary care provider for a new referral. Co-Payments: If you are required to pay a VA co-payment, you will be billed by the VA for each authorized visit that you attend. However, you are NOT REQUIRED to make co-payments to a Community Provider. Prescriptions: Your community provider may write a prescription related to the authorized care. If there is an immediate need for your prescriptions from your community care visit, you may be able to get up to a 14-day fill of your prescription at your own expense for the cost of the medication, and may seek reimbursement from the VA. If you require more than a 14-day supply or if the prescribed medication is not immediately needed, your community provider will send a prescription to a VA pharmacy so that the VA can provide you with your routine medication. In-network locations can be found at https://www.va.gov/find-lo cations/ Medical Devices: Your community provider may recommend that medical devices, adapted equipment, or other items be provided for the treatment or rehabilitation of your medical condition. Veterans are generally required to obtain these items through the Prosthetics and Sensory Aids Service (PSAS) in your referring facility. Emergency/Inpatient Services: You, your community provider, or your family must provide notification within 72hr or ER visit and/or admission by [phone]. Thank you for the opportunity to serve you and for your service to our great nation! LOCO Aguirre [facility] Care in the Community [address] [facility] [place] [address] LOCO DEMPSEY [facility]
--- OUTSIDE RECORDS SUMMARY | 2024-12-05 08:58 | XMS_ITS | Encounter Summary ---
Author Name [facility] [place] [facility] [place] Address [address] [place] [address] Care Team Providers Care Care Consultant Name Role Phone FELIPE SOLO Primary Care [...] HEALTH PLAN W/HEALTH SAVINGS ACCOUNT DANIELLE CHATMANI [employer] Jul 06, 2023 [id number] [phone] SETH MCDOWELL PATIENT [employer] BEHAVIORAL HEALTH MENTAL HEALTH STORM SERVI JOSUE FER Jul 06, 2023 [id number] [phone] SETH MCDOWELL PATIENT [employer] ([employer] S[employer]IP[employer]) PRESCRIPT ION STORM SERVI JOSUE FER Jul 06, 2023 [id number] [phone] SETH MCDOWELL PATIENT Selected Encounter This section includes the information on record at [place] for the Encounter. Date/Time Encounter Type Encounter Description Reason Pro vider Source Dec 05, 2024 01:58 PM Outpatient Encounter COMMUNITY CARE CONSULT IHE Encounter Template Text not used by [place] Plan of Treatment: Future Appointments (+ 6 months) and Future Tests (+/- 45 days) The Plan of Treatment section includes future care activities for the patient from all [place] [facility]. This section includes future appointments and future orders which are active, pending or scheduled. Future Appointments This section includes appointments that were scheduled to occur 6 months from the date of the Encounter, up to a maximum of 20 appointments. The data comes from all [place] treatment facilities. Appointment Date/Time Appointment Type Appointme nt Facility Name Dec 12, 2024 08:30 AM AMBULATORY - MEDICINE [facility] Mar 06, 2025 08:30 AM AMBULATORY - MEDICINE [facility] Active, Pending, and Scheduled Orders This section includes a listing of several types of active, pending, and scheduled orders, including clinic medications orders, diagnostic test orders, procedure orders and consult orders; where the start date of the order is 45 days before the date of the Encounter or 45 days after the date of theEncounter. The data comes from all [place] treatment facilities. Test Date/Time Test Type Test Details Facility Name Nov 27, 2024 12:26 PM Consult Order COMMUNITY CARE-ENDOCRINOLOGY [id number] Cons Chief Talent Officer's Choice [facility] Dec 05, 2024 02:22 PM Consult Order COMMUNITY CARE-CHIROPRACTIC [id number] [facility] Chief Talent Officer's Choice [facility] Advance Directives: All historical and current Section Date Range: From patient's date of to the date document was created. This section includes ALL of a patient's completed or amended [place] Advance and Rescinded Directives. The entries below indicate that a directive exists for the patient, but an actual copy is not included with this document. The data comes from all [facility]. Date Advance Directives Provider Source Oct 24, 2011 ADVANCE DIRECTIVE BOLIVAR SCHROEDER TEVIN IS [facility] Aug 02, 2011 ADVANCE DIRECTIVE DISCUSSION JEMMA DONALDSON [facility] Encounter Notes: All associated encounter notes This section contains the clinical notes associated to the Encounter. Date/Time Encounter Note(s) Provider Source Dec 05, 2024 02:01 PM LETTERS: LOCAL TITLE: COMMUNITY CARE-REQUEST FOR SERVICES (RFS) LETTER PB STANDARD TITLE: LETTERS DATE OF NOTE: DEC 05, 2024@14:01 ENTRY DATE: DEC 05, 2024@14:01:36 AUTHOR: LIAM ROCHE EXP COSIGNER: URGENCY: STATUS: COMPLETED [facility] [address] [place] [address] P:[phone] F: [phone] Email: .com Dear Provider, Information: Patient Name: Javi Mcdowell Date of : 1985 [facility] has received the request for continuation of care from you. Upon review, the following determination has been made: A consult has been entered for requested services. This consult request will be reviewed for services offered within the [place] before approving services to community provider. If approved for community services, the authorization will be faxed to the appropriate office. It is recommended that no appointments be scheduled for the referred request until the authorization has been approved. No action is required by your office at this time. Should you have questions, please contact us at [phone] to speak with a patient client service associate. As a reminder, if applicable, return medical records within 30 days for routine services. Sincerely, Community Care Staff LIAM ROCHE [facility] Dec 05, 2024 02:00 PM NONVA NOTE: LOCAL TITLE: COMMUNITY CARE-REQUEST FOR SERVICE NOTE PB STANDARD TITLE: NONVA NOTE DATE OF NOTE: DEC 05, 2024@14:00 ENTRY DATE: DEC 05, 2024@14:00:14 AUTHOR: LIAM ROCHE EXP COSIGNER: URGENCY: STATUS: COMPLETED COMMUNITY CARE-REQUEST FOR SERVICE NOTE PB Has ADDENDA Request for Services (RFS) documentation has been sent for scanning to [facility] Community Care Consult: COMMUNITY CARE-chiropractic Consult No: [id number] Date sent to scanning: Dec A Request for Service (RFS) form [id number] has been received which includes the following: RFS received from Dr. Black requesting continuation of care for m99.03, requesting auth to begin with appt scheduled [id number] at 0830 Date VA received request: Dec Date service required: Dec Requesting Community Provider Information: [facility] [address] [facility] [address] P:[phone] F: [phone] Email: [email or web address] LIAM Boss Care in the Community Signed: 12/05/2024 14:01 12/05/2024 ADDENDUM STATUS: COMPLETED [facility] Scanned Document - Addendum. Request for Services (RFS) documentation has been sent for scanning to [facility] Community Care Consult: COMMUNITY CARE-chiropractic Consult No: [id number] Date sent to scanning: Dec SCANNED DOCUMENT SIGNATURE NOT REQUIRED Electronically Filed: 12/05/2024 by: LIAM Rollins [facility]
--- OUTSIDE RECORDS SUMMARY | 2024-12-08 07:58 | XMS_ITS | Encounter Summary ---
Author Name [facility] [place] Organization [place] Address [address] [place] [address] Care Team Providers Care Chronometer Assembler And Adjuster Name Role Phone FELIPE SOLO Primary Care [...] HEALTH PLAN W/HEALTH SAVINGS ACCOUNT DANIELLE CHATMANI [employer] Jul 06, 2023 [id number] [phone] SETH MCDOWELL PATIENT [employer] BEHAVIORAL HE[employer] MENTAL HEALTH STORM SERVI JOSUE FER Jul 06, 2023 [id number] SETH MCDOWELL PATIENT [employer] ([employer]PRESS SCRIPTS) PRESCRIPT ION STORM SERVI JOSUE FER Jul 06, 2023 [id number] [phone] SETH MCDOWELL PATIENT Selected Encounter This section includes the information on record at [place] for the Encounter. Date/Time Encounter Type Encounter Description Reason Pro vider Source Dec 08, 2024 12:58 PM Outpatient Encounter COMMUNITY CARE CONSULT IHE Encounter Template Text not used by [place] Plan of Treatment: Future Appointments (+ 6 months) and Future Tests (+/- 45 days) The Plan of Treatment section includes future care activities for the patient from all [place] [facility]. This section includes future appointments and [...] 12, 2024 08:30 AM AMBULATORY - MEDICINE [facility] Mar 06, 2025 08:30 AM AMBULATORY - MEDICINE [facility] Active, Pending, and Scheduled Orders [...] PM Consult Order COMMUNITY CARE-ENDOCRINOLOGY [id number] Cons Regional Engagement Consultant's Choice [facility] Dec 05, 2024 02:22 PM Consult Order COMMUNITY CARE-CHIROPRACTIC [id number] [facility] Regional Engagement Consultant's Choice [facility] Advance Directives: All historical and current Section Date Range: From patient's date of to the date document was created. This section includes ALL of a patient's completed or amended [place] Advance and Rescinded Directives. The entries below indicate that a directive exists for the patient, but an actual copy is not included with this document. The data comes from all [facility]. Date Advance Directives Provider Source Oct 24, 2011 ADVANCE DIRECTIVE BOLIVAR SCHROEDER TEVIN IS [facility] Aug 02, 2011 ADVANCE DIRECTIVE DISCUSSION JEMMA DONALDSON [facility] Encounter Notes: All associated encounter notes This section contains the clinical notes associated to the Encounter. Date/Time Encounter Note(s) Provider Source Dec 08, 2024 12:58 PM LETTERS: LOCAL TITLE: COMMUNITY CARE-REFERRAL PB (AUTO-PRINT) STANDARD TITLE: LETTERS DATE OF NOTE: DEC 08, 2024@12:58:29 ENTRY DATE: DEC 08, 2024@12:58:30 AUTHOR: DEE MYERS COSIGNER: URGENCY: STATUS: COMPLETED Javi Mcdowell [address] [place], [place] [address] Dear JAVI MCDOWELL, Your VA provider has referred you to a provider within the community for care. Your medical care for CHIROPRACTIC has been authorized with the Community Care Provider listed below. DO NOT REPORT TO THE [place] MEDICAL CENTER Provider info: An appointment has been scheduled for you on: Dec 12, 2024 08:30 AM Office Name: JOHN Janee [place] Address: [address] [facility] Address: [place], [address] Phone Number: Auth #: [id number] Referral Issue Date: 2024-12-08 Expiration Date: 2025-06-10 If you are unable to keep this appointment or the appointment is no longer needed, please contact the community provider above for notification/rescheduling and then call the Fadi Martinez [place] Community Care Office at [phone]. If you need additional care/services not mentioned [...] medication. In-network locations can be found at https://www.va.gov/find-loca tions/ Medical Devices: Your community provider may recommend [...] 72hr or ER visit and/or admission by [phone]. Thank you for the opportunity to serve you and for your service to our great nation! DEE Aguirre [facility] Care in the Community [address] [facility] [place] [address] DEE MYERS [facility]
--- OUTSIDE RECORDS SUMMARY | 2024-12-09 09:34 | XMS_ITS | Continuity of Care Document ---
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 It does not include entries that were removed or entered in error. Problem Status Onset Date Problem Type Date of Resolution Comments Source visit for: services physical separation Inactive Condition DoD visit for: ears / hearing exam Active Condition DoD visit for: services flight physical Active Condition DoD joint pain, localized in the left shoulder Active Condition DoD visit for: examination of subpopulation Active Condition [facility] Cognitive Skills - Problem-Solving Strategies Inactive Condition [facility] joint pain, localized in the shoulder Active Condition [facility] Patient Education - Injury Prevention Inactive Condition [facility] visit for: administrative purpose Inactive Condition [facility] ASSESSMENT OF PATIENT CONDITION WORK-RELATED Active Condition DoD diarrhea Inactive Condition Instructed pt to drink plenty of fluids (water or gatorade) stay well hydrated DoD nausea with vomiting Active Condition [facility] DERMATOPHYTOSIS TINEA PEDIS Inactive Condition [facility] joint stiffness of the knee Active Condition [facility] Other Physical Therapy Inactive Condition DoD PATELLOFEMORAL DYSFUNCTION Active Condition DoD PATELLOFEMORAL SYNDROME Active Condition continue Nsaid, profile written, consult for physical therapy sent [facility] Preventive Medicine Establ. Patient Checkup Adult 18-39 Inactive Condition [facility] Arthritis of left knee Active Condition [facility] Arthritis of right knee Active Condition [facility] Asthma (SCT [id number]) Active Condition [facility] Bilateral carpal tunnel syndrome Active Condition [facility] Bilateral sensory hearing loss Active Condition [facility] Chronic migraine without aura Active Condition [facility] Chronic post-traumatic stress disorder following combat Active Condition [facility] Chronic rhinitis Active Condition [facility] Depression (SCT [id number]) Active Condition [facility] Dizziness Active Condition [facility] Exposure to potentially hazardous substance Active [facility] [facility] Gastroesophageal reflux disease Active Condition [place] [facility] Headache disorder Active Condition [place] 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 Left knee pain Active Condition [facility] Lumbar disc prolapse with radiculopathy Active [place] [facility] Nicotine dependence Active Condition [facility] Pain of bilateral knee joints Active [place] [facility] Pain of left shoulder joint Active Condition [facility] Pain of right shoulder joint Active Condition [facility] Short term memory loss Active Condition [facility] Sleep apnea Active Condition [facility] Tinnitus Active Condition [facility] Abscess Inactive Condition 02/16/2023 [facility] Disorders of bursae and tendons in shoulder region (ICD-9-CM 726.10) Inactive Condition 09/11/20[address] [place] [facility] Encounters for other Specified Administrative Purpose (ICD-9-CM V68.89) Inactive Condition 11/25/2020 [place] [facility] Epididymitis (SNOMED CT 41685876) Inactive Condition 02/16/2023 [facility] Family History of Diabetes Mellitus (ICD-9-CM V18.0) Inactive Condition 02/16/[address] [place] [facility] Family History of other Cardiovascular Diseases (ICD-9-CM V17.49) Inactive Condition 02/16/[address] [place] [facility] Folliculitis (SNOMED CT 29443960) Inactive Condition 02/16/2023 [facility] Hearing Loss, Partial * (ICD-9-CM 389.9) Inactive Condition 02/16/[address] [place] [facility] Knowledge Deficit * (ICD-9-CM V62.3) Inactive Condition 05/21/[address] [place] [facility] Laboratory Examination Ordered as part of a Routine General Medical Examination Inactive Condition 11/25/[place] [facility] Pain in joint involving shoulder region (ICD-9-CM 719.41) Inactive Condition 02/16/[address] [place] [facility] Painful respiration (ICD-9-CM 786.52) Inactive Condition 05/21/[address] [place] [facility] Posttraumatic Stress Disorder * (ICD-9-CM 309.81) Inactive Condition 02/16/[address] [place] [facility] Routine General Medical Examination at a Health Care Facility * (ICD-9-CM V70.0) Inactive Condition 11/25/[address] [place] [facility] Screening for Traumatic Brain Injury (ICD-9-CM V80.01) Inactive Condition 11/25/2020 [place] [facility] Tobacco Use Disorder, Continuous (ICD-9-CM 305.1) Inactive Condition 02/16/2023 [place] [facility] Unspecified Sleep APNEA (ICD-9-CM 780.57) Inactive Condition 09/11/2024 [place] [facility] Urgent desire to urinate (SNOMED CT [id number]) Inactive Condition 02/16/2023 [facility] VACCINATION FOR TD-DT - Tetanus-diphtheria [td] [dt] (ICD-9-CM V06.5) Inactive Condition 11/25/2020 [facility] Diagnosis: ICD-10-CM R42 Dizziness and giddiness Active Diagnosis [facility] Diagnosis: ICD-10-CM F32.A Depression, unspecified Active Diagnosis [facility] Diagnosis: ICD-10-CM R00.0 Tachycardia, unspecified Active Diagnosis [facility] Diagnosis: ICD-10-CM M79.673 Pain in unspecified foot Active Diagnosis [facility] Diagnosis: ICD-10-CM R53.81 Other malaise Active Diagnosis [facility] Diagnosis: ICD-10-CM J01.90 Acute sinusitis, unspecified Active Diagnosis [facility] Diagnosis: ICD-10-CM Z00.00 Encntr for general adult medical exam w/o abnormal findings Active Diagnosis [facility] Diagnosis: ICD-10-CM H65.03 Acute serous otitis media, bilateral Active Diagnosis [facility] Diagnosis: ICD-10-CM R09.81 Nasal congestion Active Diagnosis [facility] Diagnosis: ICD-10-CM E03.9 Hypothyroidism, unspecified Active Diagnosis [facility] Medications Combined list of outpatient medications from Department of Defense and Veterans Affairs facilities.Medications provided include 1) outpatient medications from the last 15 months, and 2) patient-reported medications. Medication Details Route Status Patient Instructions Prescription Expires Prescription Number Last Dispense Date Ordering Provider Order Date Order Qty Source ESOMEPRAZOL E MAGNESIUM 40MG CAP,EC TAKE ONE CAPSULE BY MOUTH EVERY MORNING BEFORE A MEAL FOR GASTROES OPHAGEAL REFLUX DISEASE (TAKE 1 HOUR BEFORE A MEAL) ORAL ACTIVE 03/01/2025 [id number] 5 Dane SOLO [address] [place] [address] ESOMEPRAZOL E MAGNESIUM 40MG CAP,EC TAKE ONE CAPSULE BY MOUTH EVERY MORNING BEFORE A MEAL FOR GASTROES OPHAGEAL REFLUX DISEASE (TAKE 1 HOUR BEFORE A MEAL) ORAL DISCONT INUED 02/20/2024 [id number] 4 Dane SOLO [address] [place] [address] HYDROXYZINE HCL 25MG TAB TAKE ONE TABLET BY MOUTH TWICE DAILY NEEDED FOR ANXIETY *MAY CAUSE DROWSINE SS* ORAL ACTIVE 09/13/2025 [id number] 5 Dane SOLO R [address] [place] [address] LEVOTHYROXI NE NA 125MCG TAB TAKE TWO TABLETS BY MOUTH EVERY MORNING BEFORE A MEAL FOR HYPOTHYR OIDISM TAKE 30 MINUTES BEFORE FOOD. TAKE SEPARATE LY FROM ALL OTHER MEDICATI ONS. ORAL DISCONT INUED 05/23/2025 [id number] 5 Dane SOLO [address] [place] [address] LEVOTHYROXI NE NA 200MCG TAB TAKE ONE TABLET BY MOUTH ONCE A DAY TAKE 30 MINUTES BEFORE FOOD. TAKE SEPARATE LY FROM ALL OTHER MEDICATI ONS. ORAL 08/10/2024 [id number] 5 MICHELLE ZAYAS [address] [place] [facility] LEVOTHYROXI NE NA 200MCG TAB TAKE ONE TABLET BY MOUTH ONCE A DAY TAKE 30 MINUTES BEFORE FOOD. TAKE SEPARATE LY FROM ALL OTHER MEDICATI ONS. ORAL 07/02/2024 [id number] 5 MICHELLE ZAYAS 2024 30 [place] [facility] LEVOTHYROXI NE NA 50MCG TAB TAKE ONE TABLET BY MOUTH ONCE A DAY TAKE 30 MINUTES BEFORE FOOD. TAKE SEPARATE LY FROM ALL OTHER MEDICATI ONS. ORAL 07/02/2024 [id number] 5 MICHELLE ZAYAS 2024 30 [place] [facility] LIDOCAINE 5% PATCH APPLY 1 PATCH TO SKIN SITE ONCE A DAY FOR LOCAL ANESTHES [place] APPLY PATCH AND PRESS FIRMLY FOR 10-15 SECONDS. KEEP ON FOR 12 HOURS THEN REMOVE PATCH FOR 12 HOURS. TRANSD ERMAL ACTIVE 03/10/2025 [id number] 4 Dane SOLO [place] R [address] [place] [address] Allergies, Adverse Reactions, Alerts Combined list of allergies from Department of Defense and Veterans Affairs facilities. It does not include entries that were removed or entered in error. Substance Category Reaction Severity Reaction type Status Date Reported Comments Source No Known Allergies Drug allergy (disorder) active 02/27/2006 [facility] Immunizations Combined list of available immunizations from the Department of Defense and Veterans Affairs facilities. Immunization Series Date Given Administered By Site Reaction Lot Number CVX Code Drug Movie Operator Status Comments Source COVID-19 ([employer]), VECTOR-NR, [id number], PF, 0.5 ML 1 2020 212 complet ed HISTORICA L INFORMATI ON - FROM OTHER REGISTRY, [facility] N TDAP 2013 115 complet ed Left Deltoid [facility] influenza virus vaccine, live, attenuated, for intranasal use 1 2010 [id number] Unknown (UNK) comple t ed influenza virus vaccine, live, attenuate d, for intranasa l use DoD typhoid Vi capsular polysaccharid e vaccine 1 2010 [id number] 101 Unknown (UNK) comple t ed typhoid Vi capsular polysacch aride vaccine DoD influenza virus vaccine, split virus (incl. purified surface antigen)-reti red CODE 1 2009 [id number] 15 Unknown (UNK) comple t ed influenza virus vaccine, split virus (incl. purified surface antigen)- retired CODE DoD anthrax vaccine 7 2009 UNK 24 Unknown (UNK) comple t ed anthrax vaccine DoD Novel influenza-H1N 1-09, injectable 1 2008 [id number] 127 Unknown (UNK) complet ed Novel influenza -M3T2-03, injectabl e DoD anthrax vaccine 6 2008 [id number] Emergent [employer] [facility] ([facility]) complet ed anthrax vaccine DoD influenza virus vaccine, live, attenuated, for intranasal use 1 2008 UNK 111 Unknown (UNK) comple t ed influenza virus vaccine, live, attenuate d, for intranasa l use DoD meningococcal polysaccharid e vaccine (MPSV4) 1 2008 UNK 32 Unknown (UNK) comple t ed meningoco ccal polysacch aride vaccine (MPSV4) DoD typhoid Vi capsular polysaccharid e vaccine 1 2008 UNK 101 Unknown (UNK) comple t ed typhoid Vi capsular polysacch aride vaccine DoD influenza virus vaccine, live, attenuated, for intranasal use 1 2007 UNK 111 Unknown (UNK) comple t ed influenza virus vaccine, live, attenuate d, for intranasa l use DoD anthrax vaccine 5 2007 [id number] 24 Unknown (UNK) comple t ed anthrax vaccine DoD anthrax vaccine 4 2007 [id number] 24 Unknown (UNK) comple t ed anthrax vaccine DoD influenza virus vaccine, live, attenuated, for intranasal use 1 2006 [id number] 111 Unknown (UNK) comple t ed influenza virus vaccine, live, attenuate d, for intranasa l use DoD anthrax vaccine 3 2006 UNK 24 Unknown (UNK) comple t ed anthrax vaccine DoD anthrax vaccine 2 2006 UNK 24 Unknown (UNK) comple t ed anthrax vaccine DoD anthrax vaccine 1 2006 UNK 24 Unknown (UNK) comple t ed anthrax vaccine DoD yellow fever vaccine 1 2006 UNK 37 Unknown (UNK) comple t ed yellow fever vaccine DoD hepatitis A vaccine, adult dosage 3 2005 UNK 52 Unknown (UNK) comple t ed hepatitis A vaccine, adult dosage DoD vaccinia (smallpox) vaccine 1 2005 UNK 75 Unknown (UNK) comple t ed vaccinia (smallpox ) vaccine DoD typhoid Vi capsular polysaccharid e vaccine 1 2005 UNK 101 Unknown (UNK) comple t ed typhoid Vi capsular polysacch aride vaccine DoD hepatitis B vaccine, adult dosage 4 2005 [id number] Merck (MSD) complet ed hepatitis B vaccine, adult dosage DoD tuberculin skin test; purified protein derivative solution, intradermal 1 2005 SONYA PIERCE Pam [id number] 96 [place] (PD) complet ed tuberculi n skin test; purified protein derivativ e solution, intraderm al DoD influenza virus vaccine, live, attenuated, for intranasal use 1 2005 [id number] 111 [place] (MIL) complet ed influenza virus vaccine, live, attenuate d, for intranasa l use DoD influenza virus vaccine, split virus (incl. purified surface antigen)-reti red CODE 1 2004 [id number] Other (OTH) complet ed influenza virus vaccine, split virus (incl. purified surface antigen)- retired CODE DoD influenza virus vaccine, split virus (incl. purified surface antigen)-reti red CODE 1 2003 [id number] 15 Unknown (UNK) comple t ed influenza virus vaccine, split virus (incl. purified surface antigen)- retired CODE DoD hepatitis A vaccine, adult dosage 1 2003 UNK 52 Unknown (UNK) comple t ed hepatitis A vaccine, adult dosage DoD hepatitis B vaccine, adult dosage 3 2003 UNK 43 Unknown (UNK) comple t ed hepatitis B vaccine, adult dosage DoD hepatitis B vaccine, adult dosage 1 2003 [id number] 43 Unknown (UNK) complet ed hepatitis B vaccine, adult dosage DoD typhoid Vi capsular polysaccharid e vaccine 1 2003 [id number] 101 Unknown (UNK) comple t ed typhoid Vi capsular polysacch aride vaccine DoD influenza virus vaccine, split virus (incl. purified surface antigen)-reti red CODE 1 2002 [id number] 15 Unknown (UNK) comple t ed influenza virus vaccine, split virus (incl. purified surface antigen)- retired CODE DoD measles, mumps and rubella virus vaccine 1 2002 [id number] Merck (MSD) complet ed measles, mumps and rubella virus vaccine DoD tetanus and diphtheria toxoids, adsorbed, preservative free, for adult use (2 Lf of tetanus toxoid and 2 Lf of diphtheria toxoid) 1 2002 [id number] Unknown (UNK) comple t ed tetanus and diphtheri a toxoids, adsorbed, preservat tiffany free, for adult use (2 Lf of tetanus toxoid and 2 Lf of diphtheri a toxoid) DoD poliovirus vaccine, inactivated 1 2002 [id number] 10 Unknown (UNK) comple t ed polioviru s vaccine, inactivat ed DoD meningococcal polysaccharid e vaccine (MPSV4) 1 2002 [id number] 32 Unknown (UNK) comple t ed meningoco ccal polysacch aride vaccine (MPSV4) DoD hepatitis A and hepatitis B vaccine 1 2002 [id number] 104 Unknown (UNK) complet ed hepatitis A and hepatitis B vaccine DoD Results Combined list of recent chemistry, hematology and other laboratory results from Department of Defense and Veterans Affairs, ranging from 15 months to all on record, depending upon the facility. Order Name Results Value Reference Range Date Interpretation Specimen Comments Source TSH (MA-PB) THYROTROPIN [UNITS/VOLU ME] IN SERUM OR PLASMA 9.693 u[IU]/mL 0.47 - 5 02/24 H Specimen Type: SERUM No comment entered. Ordering Provider: NIKKO SOLO Report Released Date/Time: Feb 25, 2024 09:52 AM Reporting Lab: [place] [facility] [address] [place] [facility] Performing Lab: [place] [facility] [address] [place] [facility] [facility] PROST. SPECIFIC AG.(PB-ST L) PROSTATE SPECIFIC AG [MASS/VOLUM E] IN SERUM OR PLASMA 0.81 ng/mL 0 - 4 02/24 Specimen Type: SERUM No comment entered. Ordering Provider: NIKKO SOLO Report Released Date/Time: Feb 25, 2024 09:52 AM Reporting Lab: [place] [facility] [address] [place] [id number] Performing Lab: [place] [facility] [address] [place] [address] [facility] HGA1C HEMOGLOBIN A1C/HEMOGLO BIN.TOTAL IN BLOOD 5.6 4.0 - 6.0 02/24 Specimen Type: BLOOD No comment entered. Ordering Provider: NIKKO SOLO Report Released Date/Time: Feb 25, 2024 09:52 AM Reporting Lab: [place] [facility] [address] [place] [address] Performing Lab: [place] [facility] [address] [place] [address] [facility] VITAMIN D, 25-HYDROX Y 25-HYDROXYV ITAMIN D3 [MASS/VOLUM E] IN SERUM OR PLASMA 43.0 ng/mL 30 - 96 02/24 Specimen Type: SERUM No comment entered. Ordering Provider: NIKKO SOLO Report Released Date/Time: Feb 25, 2024 09:52 AM Reporting Lab: [place] [facility] [address] [place] [address] Performing Lab: [place] [facility] [address] [place] [address] [facility] URINALYSI S (STL-PB) COLOR OF URINE Light Yellow 02/24 Specimen Type: URINE No comment entered. Ordering Provider: NIKKO SOLO Report Released Date/Time: Feb 25, 2024 09:52 AM Reporting Lab: [place] [facility] [address] [place] [address] Performing Lab: [place] [facility] [address] [place] [address] [facility] URINALYSI S (STL-PB) BILIRUBIN.T OTAL [PRESENCE] IN URINE BY TEST STRIP NEGATIVE mg/dL 02/24 Specimen Type: URINE No comment entered. Ordering Provider: NIKKO SOLO Report Released Date/Time: Feb 25, 2024 09:52 AM Reporting Lab: [place] [facility] [address] [place] [address] Performing Lab: [place] [facility] [address] [place] [address] [facility] URINALYSI S (STL-PB) PH OF URINE BY TEST STRIP 6.5 5.0 - 8.0 02/24 Specimen Type: URINE No comment entered. Ordering Provider: NIKKO SOLO R Report Released Date/Time: Feb 25, 2024 09:52 AM Reporting Lab: [place] [facility] [address] [place] [address] Performing Lab: [place] [facility] [address] [place] [address] [facility] URINALYSI S (STL-PB) APPEARANCE OF URINE CLEAR 02/24 Specimen Type: URINE No comment entered. Ordering Provider: NIKKO SOLO R Report Released Date/Time: Feb 25, 2024 09:52 AM Reporting Lab: [place] [facility] [address] [place] [address] Performing Lab: [place] [facility] [address] [place] [address] [facility] URINALYSI S (STL-PB) NITRITE [PRESENCE] IN URINE BY TEST STRIP NEGATIVE mg/dL 02/24 Specimen Type: URINE No comment entered. Ordering Provider: NIKKO SOLO R Report Released Date/Time: Feb 25, 2024 09:52 AM Reporting Lab: [place] [facility] [address] [place] [phone] Performing Lab: [place] [facility] [address] [place] [address] [facility] URINALYSI S (STL-PB) GLUCOSE [MASS/VOLUM E] IN URINE BY TEST STRIP NORMALmg /dL 02/24 Specimen Type: URINE No comment entered. Ordering Provider: NIKKO SOLO R Report Released Date/Time: Feb 25, 2024 09:52 AM Reporting Lab: [place] [facility] [address] [place] [address] Performing Lab: [place] [facility] [address] [place] [address] [facility] URINALYSI S (STL-PB) PROTEIN [MASS/VOLUM E] IN URINE BY TEST STRIP NEGATIVE mg/dL 02/24 Specimen Type: URINE No comment entered. Ordering Provider: NIKKO SOLO R Report Released Date/Time: Feb 25, 2024 09:52 AM Reporting Lab: [place] [facility] [address] [place] [address] Performing Lab: [place] [facility] [address] [place] [address] [facility] URINALYSI S (STL-PB) URN.UROBILI NOGEN NORMALmg /dL 02/24 Specimen Type: URINE No comment entered. Ordering Provider: NIKKO SOLO R Report Released Date/Time: Feb 25, 2024 09:52 AM Reporting Lab: [place] [facility] [address] [place] [address] Performing Lab: [place] [facility] [address] [place] [address] [facility] URINALYSI S (STL-PB) HEMOGLOBIN [MASS/VOLUM E] IN URINE BY TEST STRIP NEGATIVE mg/dL 02/24 Specimen Type: URINE No comment entered. Ordering Provider: NIKKO SOLO R Report Released Date/Time: Feb 25, 2024 09:52 AM Reporting Lab: [place] [facility] [address] [place] [address] Performing Lab: [place] [facility] [address] [place] [address] [facility] URINALYSI S (STL-PB) KETONES [MASS/VOLUM E] IN URINE BY TEST STRIP NEGATIVE mg/dL 02/24 Specimen Type: URINE No comment entered. Ordering Provider: NIKKO SOLO R Report Released Date/Time: Feb 25, 2024 09:52 AM Reporting Lab: [place] [facility] [address] [place] [address] Performing Lab: [place] [facility] [address] [place] [address] [facility] URINALYSI S (STL-PB) URN.LEUK.ES T. NEGATIVE 02/24 Specimen Type: URINE No comment entered. Ordering Provider: NIKKO SOLO Report Released Date/Time: Feb 25, 2024 09:52 AM Reporting Lab: [place] [facility] [address] [place] [address] Performing Lab: [place] [facility] [address] [place] [address] [facility] URINALYSI S (STL-PB) SPECIFIC GRAVITY OF URINE 1.019 1.005 - 1.029 02/24 Specimen Type: URINE No comment entered. Ordering Provider: NIKKO SOLO Report Released Date/Time: Feb 25, 2024 09:52 AM Reporting Lab: [place] [facility] [address] [place] [address] Performing Lab: [place] [facility] [address] [place] [address] [facility] CHOLESTER OL PANEL (PB) CHOLESTEROL [MASS/VOLUM E] IN SERUM OR PLASMA 195 mg/dL 0 - 200 02/24 Specimen Type: PLASMA No comment entered. Ordering Provider: NIKKO SOLO Report Released Date/Time: Feb 25, 2024 09:52 AM Reporting Lab: [place] [facility] [address] [place] [address] Performing Lab: [place] [facility] [address] [place] [address] [facility] CHOLESTER OL PANEL (PB) TRIGLYCERID E [MASS/VOLUM E] IN SERUM OR PLASMA 224 mg/dL 0 - 150 02/24 H Specimen Type: PLASMA No comment entered. Ordering Provider: NIKKO SOLO Report Released Date/Time: Feb 25, 2024 09:52 AM Reporting Lab: [place] [facility] [address] [place] [address] Performing Lab: [place] [facility] [address] [address] [place] [address] [facility] CHOLESTER OL PANEL (PB) CHOLESTEROL IN LDL [MASS/VOLUM E] IN SERUM OR PLASMA BY CALCULATION 115.0 mg/dL 02/24 Specimen Type: PLASMA No comment entered. Ordering Provider: NIKKO SOLO R Report Released Date/Time: Feb 25, 2024 09:52 AM Reporting Lab: [place] [facility] [address] [place] [address] Performing Lab: [place] [facility] [address] [place] [address] [facility] CHOLESTER OL PANEL (PB) CHOLESTEROL IN HDL [MASS/VOLUM E] IN SERUM OR PLASMA 35.2 mg/dL 40 02/24 L Specimen Type: PLASMA No comment entered. Ordering Provider: NIKKO SOLO R Report Released Date/Time: Feb 25, 2024 09:52 AM Reporting Lab: [place] [facility] [address] [place] [address] Performing Lab: [place] [facility] [address] [place] [address] [facility] CHOLESTER OL PANEL (PB) CHOLESTEROL IN HDL/CHOLEST SIDDHARTHA.TOTAL [MASS RATIO] IN SERUM OR PLASMA 18.1 25 02/24 Specimen Type: PLASMA No comment entered. Ordering Provider: NIKKO SOLO R Report Released Date/Time: Feb 25, 2024 09:52 AM Reporting Lab: [place] [facility] [address] [place] [address] Performing Lab: [place] [facility] [address] [place] [address] [facility] COMPREHEN SIVE METABOLIC PANEL CREATININE [MASS/VOLUM E] IN SERUM OR PLASMA 0.90 mg/dL 0.7 - 1.3 02/24 Specimen Type: PLASMA No comment entered. Ordering Provider: NIKKO SOLO R Report Released Date/Time: Feb 25, 2024 09:52 AM Reporting Lab: [place] [facility] [address] [place] [address] Performing Lab: [place] [facility] [address] [place] [address] [facility] COMPREHEN SIVE METABOLIC PANEL UREA NITROGEN [MASS/VOLUM E] IN SERUM OR PLASMA 15 mg/dL 9 - 25 02/24 Specimen Type: PLASMA No comment entered. Ordering Provider: NIKKO SOLO R Report Released Date/Time: Feb 25, 2024 09:52 AM Reporting Lab: [place] [facility] [address] [place] [address] Performing Lab: [place] [facility] [address] [place] [address] [facility] COMPREHEN SIVE METABOLIC PANEL GLUCOSE [MASS/VOLUM E] IN SERUM OR PLASMA 95 mg/dL 72 - 99 02/24 Specimen Type: PLASMA No comment entered. Ordering Provider: NIKKO SOLO R Report Released Date/Time: Feb 25, 2024 09:52 AM Reporting Lab: [place] [facility] [address] [place] [address] Performing Lab: [place] [facility] [address] [place] [address] [facility] COMPREHEN SIVE METABOLIC PANEL SODIUM [MOLES/VOLU ME] IN SERUM OR PLASMA 138 meq/L 136 - 145 02/24 Specimen Type: PLASMA No comment entered. Ordering Provider: NIKKO SOLO R Report Released Date/Time: Feb 25, 2024 09:52 AM Reporting Lab: [place] [facility] [address] [place] [address] Performing Lab: [place] [facility] [address] [place] [address] [facility] COMPREHEN SIVE METABOLIC PANEL POTASSIUM [MOLES/VOLU ME] IN SERUM OR PLASMA 3.8 meq/L 3.5 - 5 02/24 Specimen Type: PLASMA No comment entered. Ordering Provider: NIKKO SOLO R Report Released Date/Time: Feb 25, 2024 09:52 AM Reporting Lab: [place] [facility] [address] [place] [address] Performing Lab: [place] [facility] [address] [place] [address] [facility] COMPREHEN SIVE METABOLIC PANEL CHLORIDE [MOLES/VOLU ME] IN SERUM OR PLASMA 103 meq/L 98 - 107 02/24 Specimen Type: PLASMA No comment entered. Ordering Provider: NIKKO SOLO R Report Released Date/Time: Feb 25, 2024 09:52 AM Reporting Lab: [place] [facility] [address] [place] [address] Performing Lab: [place] [facility] [address] [place] [address] [facility] COMPREHEN SIVE METABOLIC PANEL CARBON DIOXIDE, TOTAL [MOLES/VOLU ME] IN SERUM OR PLASMA 27 meq/L 22 - 31 02/24 Specimen Type: PLASMA No comment entered. Ordering Provider: NIKKO SOLO R Report Released Date/Time: Feb 25, 2024 09:52 AM Reporting Lab: [place] [facility] [address] [place] [address] Performing Lab: [place] [facility] [address] [place] [address] [facility] COMPREHEN SIVE METABOLIC PANEL CALCIUM [MASS/VOLUM E] IN SERUM OR PLASMA 9.5 mg/dL 8.4 - 10.4 02/24 Specimen Type: PLASMA No comment entered. Ordering Provider: NIKKO SOLO R Report Released Date/Time: Feb 25, 2024 09:52 AM Reporting Lab: [place] [facility] [address] [place] [address] Performing Lab: [place] [facility] [address] [place] [address] [facility] COMPREHEN SIVE METABOLIC PANEL PROTEIN [MASS/VOLUM E] IN SERUM OR PLASMA 7.0 g/dL 6 - 8.6 02/24 Specimen Type: PLASMA No comment entered. Ordering Provider: NIKKO SOLO R Report Released Date/Time: Feb 25, 2024 09:52 AM Reporting Lab: [place] [facility] [address] [place] [address] Performing Lab: [place] [facility] [address] [place] [address] [facility] COMPREHEN SIVE METABOLIC PANEL ALBUMIN [MASS/VOLUM E] IN SERUM OR PLASMA 4.4 g/dL 3.4 - 5 02/24 Specimen Type: PLASMA No comment entered. Ordering Provider: NIKKO SOLO R Report Released Date/Time: Feb 25, 2024 09:52 AM Reporting Lab: [place] [facility] [address] [place] [address] Performing Lab: [place] [facility] [address] [place] [address] [facility] COMPREHEN SIVE METABOLIC PANEL BILIRUBIN.T OTAL [MASS/VOLUM E] IN SERUM OR PLASMA 0.5 mg/dL 0.2 - 1.2 02/24 Specimen Type: PLASMA No comment entered. Ordering Provider: NIKKO SOLO R Report Released Date/Time: Feb 25, 2024 09:52 AM Reporting Lab: [place] [facility] [address] [place] [address] Performing Lab: [place] [facility] [address] [place] [address] [facility] COMPREHEN SIVE METABOLIC PANEL ALKALINE PHOSPHATASE [ENZYMATIC ACTIVITY/VO LUME] IN SERUM OR PLASMA 52 U/L 40 - 150 02/24 Specimen Type: PLASMA No comment entered. Ordering Provider: NIKKO SOLO R Report Released Date/Time: Feb 25, 2024 09:52 AM Reporting Lab: [place] [facility] [address] [place] [address] Performing Lab: [place] [facility] [address] [place] [address] [facility] COMPREHEN SIVE METABOLIC PANEL ASPARTATE AMINOTRANSF ERASE [ENZYMATIC ACTIVITY/VO LUME] IN SERUM OR PLASMA 21 U/L 5 - 34 02/24 Specimen Type: PLASMA No comment entered. Ordering Provider: NIKKO SOLO R Report Released Date/Time: Feb 25, 2024 09:52 AM Reporting Lab: [place] [facility] [address] [place] [address] Performing Lab: [place] [facility] [address] [place] [address] [facility] COMPREHEN SIVE METABOLIC PANEL ALANINE AMINOTRANSF ERASE [ENZYMATIC ACTIVITY/VO LUME] IN SERUM OR PLASMA 29 U/L 8 - 40 02/24 Specimen Type: PLASMA No comment entered. Ordering Provider: NIKKO SOLO R Report Released Date/Time: Feb 25, 2024 09:52 AM Reporting Lab: [place] [facility] [address] [place] [address] Performing Lab: [place] [facility] [address] [place] [address] [facility] COMPREHEN SIVE METABOLIC PANEL GLOMERULAR FILTRATION RATE/1.73 SQ M.PREDICTED [VOLUME RATE/AREA] IN SERUM, PLASMA OR BLOOD BY CREATININE- BASED FORMULA (CKD-EPI 2020) 111 02/24 Specimen Type: PLASMA No comment entered. Ordering Provider: NIKKO SOLO Report Released Date/Time: Feb 25, 2024 09:52 AM Reporting Lab: [place] [facility] [address] [place] [address] Performing Lab: [place] [facility] [address] [place] [address] [facility] CBC LEUKOCYTES [#/VOLUME] IN BLOOD BY AUTOMATED COUNT 7.1 10*3/uL 3.6 - 11.2 02/24 Specimen Type: BLOOD No comment entered. Ordering Provider: NIKKO SOLO R Report Released Date/Time: Feb 25, 2024 09:52 AM Reporting Lab: [place] [facility] [address] [place] [facility] Performing Lab: [place] [facility] [address] [place] [facility] [facility] CBC ERYTHROCYTE S [#/VOLUME] IN BLOOD BY AUTOMATED COUNT 5.62 10*6/uL 4.10 - 5.70 02/24 Specimen Type: BLOOD No comment entered. Ordering Provider: NIKKO SOLO R Report Released Date/Time: Feb 25, 2024 09:52 AM Reporting Lab: [place] [facility] [address] [place] [address] Performing Lab: [place] [facility] [address] [place] [facility] [facility] CBC HEMOGLOBIN [MASS/VOLUM E] IN BLOOD 16.1 g/dL 13.1 - 16.8 02/24 Specimen Type: BLOOD No comment entered. Ordering Provider: NIKKO SOLO R Report Released Date/Time: Feb 25, 2024 09:52 AM Reporting Lab: [place] [facility] [address] [place] [address] Performing Lab: [place] [facility] [address] [place] [address] [facility] CBC HEMATOCRIT [VOLUME FRACTION] OF BLOOD 47.3 38.2 - 48.4 02/24 Specimen Type: BLOOD No comment entered. Ordering Provider: NIKKO SOLO R Report Released Date/Time: Feb 25, 2024 09:52 AM Reporting Lab: [place] [facility] [address] [place] [address] Performing Lab: [place] [facility] [address] [place] [address] [facility] CBC MCV [ENTITIC VOLUME] BY AUTOMATED COUNT 84.2 fL 80.0 - 100.0 02/24 Specimen Type: BLOOD No comment entered. Ordering Provider: NIKKO SOLO R Report Released Date/Time: Feb 25, 2024 09:52 AM Reporting Lab: [place] [facility] [address] [place] [address] Performing Lab: [place] [facility] [address] [place] [address] [facility] CBC MCH [ENTITIC MASS] BY AUTOMATED COUNT 28.6 pg 27.0 - 34.0 02/24 Specimen Type: BLOOD No comment entered. Ordering Provider: NIKKO SOLO R Report Released Date/Time: Feb 25, 2024 09:52 AM Reporting Lab: [place] [facility] [address] [place] [address] Performing Lab: [place] [facility] [address] [place] [id number] [facility] CBC MCHC [MASS/VOLUM E] BY AUTOMATED COUNT 34.0 g/dL 33.0 - 36.0 02/24 Specimen Type: BLOOD No comment entered. Ordering Provider: NIKKO SOLO R Report Released Date/Time: Feb 25, 2024 09:52 AM Reporting Lab: [place] [facility] [address] [place] [address] Performing Lab: [place] [facility] [address] [place] [address] [facility] CBC PLATELETS [#/VOLUME] IN BLOOD BY AUTOMATED COUNT 267 10*3/uL 150 - 400 02/24 Specimen Type: BLOOD No comment entered. Ordering Provider: NIKKO SOLO R Report Released Date/Time: Feb 25, 2024 09:52 AM Reporting Lab: [place] [facility] [address] [place] [address] Performing Lab: [place] [facility] [address] [place] [address] [facility] CBC PLATELET MEAN VOLUME [ENTITIC VOLUME] IN BLOOD BY AUTOMATED COUNT 9.6 fL 7.5 - 11.2 02/24 Specimen Type: BLOOD No comment entered. Ordering Provider: NIKKO SOLO R Report Released Date/Time: Feb 25, 2024 09:52 AM Reporting Lab: [place] [facility] [address] [place] [address] Performing Lab: [place] [facility] [address] [place] [id number] [facility] CBC ERYTHROCYTE DISTRIBUTIO N WIDTH [RATIO] BY AUTOMATED COUNT 12.3 11.8 - 15.1 02/24 Specimen Type: BLOOD No comment entered. Ordering Provider: NIKKO SOLO R Report Released Date/Time: Feb 25, 2024 09:52 AM Reporting Lab: [place] [facility] [address] [place] [address] Performing Lab: [place] [facility] [address] [place] [address] [facility] CBC LYMPHOCYTES /100 LEUKOCYTES IN BLOOD BY AUTOMATED COUNT 37.8 02/24 Specimen Type: BLOOD No comment entered. Ordering Provider: NIKKO SOLO R Report Released Date/Time: Feb 25, 2024 09:52 AM Reporting Lab: [place] [facility] [address] [place] [address] Performing Lab: [place] [facility] [address] [place] [address] [facility] CBC MONOCYTES/1 00 LEUKOCYTES IN BLOOD BY AUTOMATED COUNT 9.7 02/24 Specimen Type: BLOOD No comment entered. Ordering Provider: NIKKO SOLO R Report Released Date/Time: Feb 25, 2024 09:52 AM Reporting Lab: [place] [facility] [address] [place] [address] Performing Lab: [place] [facility] [address] [place] [address] [facility] CBC NEUTROPHILS /100 LEUKOCYTES IN BLOOD BY AUTOMATED COUNT 47.6 02/24 Specimen Type: BLOOD No comment entered. Ordering Provider: NIKKO SOLO R Report Released Date/Time: Feb 25, 2024 09:52 AM Reporting Lab: [place] [facility] [address] [place] [address] Performing Lab: [place] [facility] [address] [place] [address] [facility] CBC EOSINOPHILS /100 LEUKOCYTES IN BLOOD BY AUTOMATED COUNT 4.2 02/24 Specimen Type: BLOOD No comment entered. Ordering Provider: NIKKO SOLO R Report Released Date/Time: Feb 25, 2024 09:52 AM Reporting Lab: [place] [facility] [address] [place] [address] Performing Lab: [place] [facility] [address] [place] [address] [facility] CBC BASOPHILS/1 00 LEUKOCYTES IN BLOOD BY AUTOMATED COUNT 0.6 02/24 Specimen Type: BLOOD No comment entered. Ordering Provider: NIKKO SOLO R Report Released Date/Time: Feb 25, 2024 09:52 AM Reporting Lab: [place] [facility] [address] [place] [address] Performing Lab: [place] [facility] [address] [place] [address] [facility] CBC LYMPHOCYTES [#/VOLUME] IN BLOOD BY AUTOMATED COUNT 2.69 10*3/uL 0.77 - 4.50 02/24 Specimen Type: BLOOD No comment entered. Ordering Provider: NIKKO SOLO R Report Released Date/Time: Feb 25, 2024 09:52 AM Reporting Lab: [place] [facility] [address] [place] [address] Performing Lab: [place] [facility] [address] [place] [address] [facility] CBC MONOCYTES [#/VOLUME] IN BLOOD BY AUTOMATED COUNT 0.69 10*3/uL 0.19 - 0.8 02/24 Specimen Type: BLOOD No comment entered. Ordering Provider: NIKKO SOLO R Report Released Date/Time: Feb 25, 2024 09:52 AM Reporting Lab: [place] [facility] [address] [place] [address] Performing Lab: [place] [facility] [address] [place] [address] [facility] CBC NEUTROPHILS [#/VOLUME] IN BLOOD BY AUTOMATED COUNT 3.39 10*3/uL 2.10 - 8.00 02/24 Specimen Type: BLOOD No comment entered. Ordering Provider: NIKKO SOLO R Report Released Date/Time: Feb 25, 2024 09:52 AM Reporting Lab: [place] [facility] [address] [place] [facility] Performing Lab: [place] [facility] [address] [place] [phone] [facility] CBC EOSINOPHILS [#/VOLUME] IN BLOOD BY AUTOMATED COUNT 0.30 10*3/uL 0.00 - 0.60 02/24 Specimen Type: BLOOD No comment entered. Ordering Provider: NIKKO SOLO R Report Released Date/Time: Feb 25, 2024 09:52 AM Reporting Lab: [place] [facility] [address] [place] [facility] Performing Lab: [place] [facility] [address] [place] [address] [facility] CBC BASOPHILS [#/VOLUME] IN BLOOD BY AUTOMATED COUNT 0.04 10*3/uL 0.00 - 0.20 02/24 Specimen Type: BLOOD No comment entered. Ordering Provider: NIKKO SOLO R Report Released Date/Time: Feb 25, 2024 09:52 AM Reporting Lab: [place] [facility] [address] [place] [address] Performing Lab: [place] [facility] [address] [place] [address] [facility] CBC IMMATURE GRANULOCYTE S/100 LEUKOCYTES IN BLOOD BY AUTOMATED COUNT 0.1 02/24 Specimen Type: BLOOD No comment entered. Ordering Provider: NIKKO SOLO Report Released Date/Time: Feb 25, 2024 09:52 AM Reporting Lab: [place] [facility] [address] [place] [address] Performing Lab: [place] [facility] [address] [place] [address] [facility] CBC IMMATURE GRANULOCYTE S [#/VOLUME] IN BLOOD BY AUTOMATED COUNT 0.01 10*3/uL 0.00 - 0.05 02/24 Specimen Type: BLOOD No comment entered. Ordering Provider: NIKKO SOLO Report Released Date/Time: Feb 25, 2024 09:52 AM Reporting Lab: [place] [facility] [address] [place] [facility] Performing Lab: [place] [facility] [address] [place] [facility] [facility] T-4-thyro xine,tot (PB) THYROXINE (T4) [MASS/VOLUM E] IN SERUM OR PLASMA 8.8 ug/dL 5.9 - 10.3 09/25 Specimen Type: SERUM Comment: [facility], [facility], [address] [place] [address] Noman Simmons M.D., Ph.D., Director of Laboratorie s , CLIA [id number] Ordering Provider: NIKKO SOLO Report Released Date/Time: Aug 09, 2023 01:55 PM Reporting Lab: [place] [facility] [address] [facility] [place] [address] Performing Lab: [place] [facility] [address] [facility] TOTAL T3 (PB-SO) TRIIODOTHYR ONINE (T3) FREE [MASS/VOLUM E] IN SERUM OR PLASMA 150 ng/dL 76 - 181 09/25 Specimen Type: SERUM Comment: Test Performed by [facility], [facility], [address] [place] Noman Simmons M.D., Ph.D., Director of Laboratorie s , CLIA [id number] Ordering Provider: NIKKO SOLO Report Released Date/Time: Aug 09, 2023 01:55 PM Reporting Lab: [place] [facility] [address] [facility] [place] [address] Performing Lab: [place] [facility] [address] [facility] [place] [facility] Vital Signs Combined list of inpatient and outpatient Vital Signs from Department of Defense and Veterans Affairs, ranging from 12 months to all on record, depending upon the facility. Vital Sign Value Date Comments Source SYSTOLIC BLOOD PRESSURE 127 10/24/2024 16:11:13 [place] [facility] DIASTOLIC BLOOD PRESSURE 81 10/24/2024 16:11:13 [facility] PULSE OXIMETRY 98 % 10/24/2024 16:11:13 [facility] WEIGHT 229.3 10/24/2024 16:11:13 [place] [facility] BMI 31 kg/m2 10/24/2024 16:11:13 [place] [facility] TEMPERATURE 98 10/24/2024 16:11:13 [place] [facility] PULSE 66 10/24/2024 16:11:13 [facility] RESPIRATION 18 10/24/2024 16:11:13 [place] [facility] SYSTOLIC BLOOD PRESSURE 133 09/11/2024 15:17:00 [place] [facility] DIASTOLIC BLOOD PRESSURE 88 09/11/2024 15:17:00 [place] [facility] PULSE OXIMETRY 95 09/11/2024 15:17:00 [place] [facility] PULSE 80 09/11/2024 15:17:00 [place] [facility] SYSTOLIC BLOOD PRESSURE 145 09/02/2024 16:29:31 [place] [facility] DIASTOLIC BLOOD PRESSURE 94 09/02/2024 16:29:31 [place] [facility] PULSE OXIMETRY 98 09/02/2024 16:29:31 [place] [facility] WEIGHT 233.3 09/02/2024 16:29:31 [place] [facility] BMI 32 kg/m2 09/02/2024 16:29:31 [place] [facility] TEMPERATURE 98 09/02/2024 16:29:31 [facility] PULSE 72 09/02/2024 16:29:31 [facility] RESPIRATION 18 09/02/2024 16:29:31 [facility] SYSTOLIC BLOOD PRESSURE 117 07/25/2024 10:45:00 [facility] DIASTOLIC BLOOD PRESSURE 79 07/25/2024 10:45:00 [facility] TEMPERATURE 97.7 07/25/2024 10:45:00 [facility] PULSE 68 07/25/2024 10:45:00 [facility] SYSTOLIC BLOOD PRESSURE 134 06/10/2024 08:15:00 [facility] DIASTOLIC BLOOD PRESSURE 81 06/10/2024 08:15:00 [facility] PULSE OXIMETRY 99 06/10/2024 08:15:00 [facility] WEIGHT 236 06/10/2024 08:15:00 [facility] BMI 32 kg/m2 06/10/2024 08:15:00 [facility] TEMPERATURE 98.7 06/10/2024 08:15:00 [facility] PULSE 72 06/10/2024 08:15:00 [facility] RESPIRATION 18 06/10/2024 08:15:00 [facility] Encounters Combined list of: 1) Encounters from [facility] facilities going backup to the last 18 months, not all [facility] inpatient encounters are included; 2) Encounters from the Department of Defense facilities going backup to 280 months. 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 KIMBERLEY RUTLEDGE 03/07 Released w/o Limitations [facility](Ph [facility]sical Therapy [facility]) [facility](Phys ical Therapy [facility]) OUTPATIENT [id number] knee class EDA SEQUEIRA 03/15 Released w/o Limitations [facility](Ph [facility]sical Therapy [facility]) [facility]) OUTPATIENT [id number] Feet RAUL LUNA 08/01 Released w/o Limitations [facility]) [facility]) OUTPATIENT [id number] NVD [facility] JUANI, JUANI CALVIN 09/27 Sick at Home/Quarter s [facility]) Erik Villatoro [place]([facility]) OUTPATIENT [id number] hpf MARINA GÓMEZ 02/16 Released w/o Limitations [facility] [id number] 05/04 Released w/o Limitations [facility] Erik Villatoro [place]([facility]) OUTPATIENT [id number] scapula r pain ZUHAIR SIMMONS 09/22 Released w/o Limitations Erik Villatoro [place]([facility] ) Theater Facility OUTPATIENT [id number] 06/19 Released w/o Limitations Theater Facilit y Erik Villatoro [place](Jero lai Conervati on [place] [facility]) OUTPATIENT [id number] Post-De plALPHONSE Farley 04/20 Released w/o Limitations Erik Villatoro GA(Hear ing Conerva tion [place] [facility]) Erik [place]o [place]([facility]) OUTPATIENT [id number] left shoulde r WAYNE Beltre 06/28 Released with Work/Duty Limitations Erik Villatoro [place]([facility]) Erik Villatoro GA([facility] Medicine [facility]) TELE CONSULT [id number] x-ray results DEMETRICE, WAYNE Sanjuana 06/29 Erik Villatoro GA([facility]) Erik Villatoro GA(Flight Medicine [facility]) OUTPATIENT [id number] shoulde r sophie DEMETRICE WAYNE Sanjuana 07/26 Released with Work/Duty Limitations Erik Villatoro GA([facility]) Erik [place]atoro [place]([facility]) OUTPATIENT [id number] left shoulde r LANA Mendez Cj 09/26 Released w/o Limitations Erik Villatoro GA([facility] ) Erik Villatoro [place](Primar y Care ([facility])) OUTPATIENT [id number] JOSUE IVAN 02/06 Released w/o Limitations Erik Villatoro GA(Prim taylor Care ([facility])) Erik Villatoro [place](Hearin g Conservat ion ([facility])) OUTPATIENT [id number] RUPA Duckworth 02/08 Released w/o Limitations Erik Villatoro [place](Hear ing Conserv ation ([facility])) Theater Facility OUTPATIENT [id number] 02/14 Released w/o Limitations Theater Facilit y [facility] Outpatient Encounter [id number] 06/12 [facility] Outpatient Encounter [id number] 06/[address] [facility] Outpatient Encounter [id number] [id number] 06/22 [facility] Outpatient Encounter [id number] [id number] 07/[address] [facility] Outpatient [facility]counter 82009-7.65 [id number] 07/26 [facility] En[facility] [id number] [id number] 08/[address] [facility] Outpatient Encounter [id number] [id number] 08/[address] [facility] [id number] [id number] 09/[address] [facility] En[facility] [id number] [id number] 09/24 [facility] OFF/OP EST SEPTEMBER X REQ PHY/QHP [id number] Diagnos is: ICD-10- CM R00.0 Tachyca rdia, unspeci Nevaeh Gagnon 09/24 [facility] OFF/OP EST SEPTEMBER X REQ PHY/QHP [id number] Diagnos is: ICD-10- CM E03.9 Hypothy roidism , unspeci Nevaeh Gagnon 09/25 [facility] Outpatient Encounter [id number] [id number] 10/[address] [facility] Outpatient Encounter [id number] [id number] 10/[address] [facility] Outpatient Encounter [id number] [id number] 10/18 [facility] OFF/OP EST SEPTEMBER X REQ PHY/QHP [id number] Diagnos is: ICD-10- CM R09.81 Nasal congest GRACE Bella A 11/01 [facility] OFFICE O/P EST MOD 30 MIN [id number] Diagnos is: ICD-10- CM H65.03 Acute serous otitis media, bilater cornelius JORGE GOTTI G 11/01 [facility] Outpatient Encounter [id number] [id number] 11/06 [facility] Outpatient Encounter [id number] [id number] 11/15 [facility] Outpatient Encounter [id number] [id number] 11/27 [facility] Outpatient Encounter [id number] [id number] 1 11/29 [facility] Outpatient Encounter [id number] [id number] 12/20 [facility] Outpatient Encounter [id number] [id number] 01/10 [facility] Outpatient Encounter [id number] [id number] 01/24 [facility] Outpatient Encounter [id number] [id number] 02/14 [facility] Outpatient Encounter [id number] Diagnos is: ICD-10- CM Z00.00 Encntr for general adult medical exam w/o abnorma l finding s SCOTT SOLO R 02/28 [facility] Outpatient Encounter [id number] [id number] 03/06 [facility] Outpatient Encounter [id number] [id number] 03/[address] [facility] Outpatient Encounter [id number] [id number] 03/13 [facility] Outpatient Encounter [id number] [id number] 03/21 [facility] Outpatient Encounter [id number] [id number] 03/24 [facility] Outpatient Encounter [id number] [id number] 03/25 [facility] Outpatient Encounter [id number] [id number] 03/27 [facility] Outpatient Encounter [id number] [id number] 03/28 [facility] OFF/OP EST SEPTEMBER X REQ PHY/QHP [id number] Diagnos is: ICD-10- CM J01.90 Acute sinusit is, unspeci fied Nevaeh CLEANING 04/09 [facility] Outpatient Encounter [id number] [id number] 04/09 [facility] Outpatient Encounter [id number] [id number] 04/11 [facility] Outpatient Encounter [id number] [id number] 04/18 [facility] Outpatient Encounter [id number] [id number] 05/02 [facility] Outpatient Encounter [id number] [id number] 05/09 [facility] Outpatient Encounter [id number] [id number] 05/12 [facility] Outpatient Encounter [id number] [id number] 05/22 [facility] Outpatient Encounter [id number] [id number] 05/30 [facility] Outpatient Encounter [id number] [id number] 1 06/02 [facility] Outpatient Encounter [id number] [id number] 06/02 [facility] Outpatient Encounter [id number] [id number] 06/06 [facility] Outpatient Encounter [id number] [id number] 06/06 [facility] OFF/OP EST SEPTEMBER X REQ PHY/QHP [id number] Diagnos is: ICD-10- CM R53.81 Other malaise Nevaeh CLEANING 06/10 [facility] Outpatient Encounter [id number] [id number] 06/10 [facility] Outpatient Encounter [id number] [id number] 06/27 [facility] Outpatient Encounter [id number] [id number] 06/27 [facility] Outpatient Encounter [id number] [id number] 06/27 [facility] Outpatient Encounter [id number] [id number] 07/11 [facility] Outpatient Encounter [id number] [id number] SCOTT SOLO R 07/25 [facility] OFF/OP EST SEPTEMBER X REQ PHY/QHP [id number] Diagnos is: ICD-10- CM M79.673 Pain in unspeci fied foot CUSTRED,TO RRI J 07/25 [facility] Outpatient Encounter [id number] [id number] 07/28 [facility] Outpatient Encounter [id number] [id number] 07/28 [facility] Outpatient Encounter [id number] [id number] 08/06 [facility] Outpatient Encounter [id number] [id number] 08/[address] [facility] Outpatient Encounter [id number] [id number] 08/08 [facility] Encounter [id number] [id number] 08/[address] [facility] Outpatient Encounter [id number] [id number] 08/[address] [facility] Outpatient Encounter [id number] [id number] 08/[address] [facility] Outpatient Encounter [id number] [id number] 08/[address] [facility] Outpatient Encounter [id number] [id number] 08/[address] [facility] Outpatient Encounter [id number] [id number] 08/[address] [facility] Outpatient Encounter [id number] [id number] 08/[address] [facility] OFF/OP EST SEPTEMBER X REQ PHY/QHP [id number] Diagnos is: ICD-10- CM R00.0 Tachyca rdia, unspeci Nevaeh Gagnon 09/02 [facility] OFFICE O/P EST MOD 30 MIN [id number] Diagnos is: ICD-10- CM F32.A Depress ion, unspeci SCOTT Manzano 09/11 [facility] Outpatient Encounter [id number] [id number] 09/12 [facility] Outpatient Encounter [id number] [id number] 10/[address] [facility] Outpatient Encounter [id number] [id number] 10/[address] [facility] OFF/OP EST MAY X REQ PHY/QHP [id number] Diagnos is: ICD-10- CM R42 Dizzine ss and giddine ss Nevaeh CLEANING 10/24 [facility] OFFICE O/P EST SF 10 MIN [id number] Diagnos is: ICD-10- CM R42 Dizzine ss and giddine ss REE BURKETT ER E III 10/24 [facility] Outpatient Encounter [id number] [id number] 11/03 [facility] [place] [facility] Outpatient Encounter [id number] [id number] 11/14 [place] [facility] [place] [facility] Outpatient Encounter [id number] [id number] 11/27 [place] [facility] [place] [facility] Outpatient Encounter [id number] [id number] 11/27 [place] [facility] Outpatient Encounter [id number] [id number] 11/[address] [facility] Outpatient Encounter [id number] [id number] 12/01 [facility] Outpatient Encounter [id number] [id number] 12/[address] [facility] Outpatient Encounter [id number] [id number] 12/[address] [facility] Outpatient Encounter [id number] 12/[address] [facility] Procedures Combined list of: 1) Procedures from Department of [facility] Affairs facilities going back up to thelast 18 months, not all [place] non-surgical procedures are included; 2) All procedures from the Department of Defense facilities. Procedure Procedure Type Code Date Perfomer Isaac [facility] e IMMUNIZATION ADMINISTRATION (INCLUDES PERCUTANEOUS, INTRADERMAL, SUBCUTANEOUS, OR INTRAMUSCULAR INJECTIONS); 1 VACCINE (SINGLE OR COMBINATION VACCINE/TOXOID) 07/06/2004 [facility] IMMUNIZATION ADMINISTRATION (INCLUDES PERCUTANEOUS, INTRADERMAL, SUBCUTANEOUS, OR INTRAMUSCULAR INJECTIONS); 1 VACCINE (SINGLE OR COMBINATION VACCINE/TOXOID) 06/07/2004 [facility] PURE TONE AUDIOMETRY (THRESHOLD); AIR ONLY 07/07/2003 [facility] HEPATITIS B VACCINE (HEPB), ADULT DOSAGE, 3 DOSE SCHEDULE, FOR INTRAMUSCULAR USE 05/28/2003 [facility] HEPATITIS A AND HEPATITIS B VACCINE (HEPA-HEPB), ADULT DOSAGE, FOR INTRAMUSCULAR USE 04/14/2003 [facility] INFLUENZA VIRUS VACCINE, TRIVALENT (IIV3), SPLIT VIRUS, 0.5 ML DOSAGE, FOR INTRAMUSCULAR USE 03/28/2003 [facility] EDUCATIONAL SUPPLIES, SUCH BOOKS, TAPES, AND PAMPHLETS, FOR THE PATIENT'S EDUCATION AT COST TO PHYSICIAN OR OTHER QUALIFIED HEALTH SALES REPRESENTATIVE ADDING MACHINES 03/14/2003 [facility] EDUCATIONAL SUPPLIES, SUCH BOOKS, TAPES, AND PAMPHLETS, FOR THE PATIENT'S EDUCATION AT COST TO PHYSICIAN OR OTHER QUALIFIED HEALTH SALES REPRESENTATIVE ADDING MACHINES 03/12/2003 [facility] INTRAMUSCULAR INJECTION OF ANTIBIOTIC (SPECIFY) 12/25/2002 [facility] EAR PROTECTOR ATTENUATION MEASUREMENTS 08/03/2005 [facility] THERAPEUTIC PROCEDURE(S), GROUP (2 OR MORE INDIVIDUALS) 03/15/2005 [facility] STRAPPING; KNEE 03/07/2005 [facility] PATIENT EDUCATION, NOT OTHERWISE CLASSIFIED, NON-PHYSICIAN PROVIDER, GROUP, PER SESSION 06/23/2004 [facility] ANALYSIS OF CLINICAL DATA STORED IN COMPUTERS (EG, ECGS, BLOOD PRESSURES, HEMATOLOGIC DATA) 06/20/2004 [facility] PURE TONE AUDIOMETRY (THRESHOLD); AIR ONLY 02/08/2011 [facility] AUDIOMETRIC TESTING OF GROUPS 04/20/2010 [facility] SCREENING TEST OF VISUAL ACUITY, QUANTITATIVE, BILATERAL 04/04/2010 [facility] SCREENING TEST OF VISUAL ACUITY, QUANTITATIVE, BILATERAL 02/03/2009 [facility] APPLICATION OF A MODALITY TO 1 OR MORE AREAS; IONTOPHORESIS, EACH 15 MINUTES 09/22/2008 [facility] SCREENING TEST OF VISUAL ACUITY, QUANTITATIVE, BILATERAL 12/09/2007 [facility] SKIN TEST; TUBERCULOSIS, INTRADERMAL 02/27/2006 [facility] EAR MOLD/INSERT, NOT DISPOSABLE, ANY TYPE 02/16/2006 [facility] Threshold Audiogram (Pure Tone) Threshold Audiogram (Pure Tone) 41688 02/08/2011 RUPA MARMOLEJO Audiometry Group Testing Audiometry Group Testing 92450 02/08/2011 RUPA MARMOLEJO Audiometry Group Testing Audiometry Group Testing 25681 04/20/2010 ALPHONSE SOLIS Threshold Audiogram (Pure Tone) Threshold Audiogram (Pure Tone) 36542 04/20/2010 ALPHONSE SOLIS Modalities Iontophoresis Modalities Iontophoresis 24931 09/22/2008 ZUHAIR SIMMONS [facility] Physical Medicine Physical Therapy Evaluation Physical Medicine Physical Therapy Evaluation 34230 09/22/2008 ZUHAIR SIMMONS Ear mold/insert, not disposable, any type 02/16/2006 MARINA GÓMEZ [facility] Modalities Cryotherapy Cold Packs Modalities Cryotherapy Cold Packs 02601 03/15/2005 MARIA FERNANDA MATTHEWS Exercises A isted Exercises For ROM Exercises Assisted Exercises For ROM 71985 03/15/2005 MARIA FERNANDA MATTHEWS Physical Medicine - Group Physical Therapy Se ion Physical Medicine - Group Physical Therapy Session 31820 03/15/2005 MARIA FERNANDA MATTHEWS Physical Medicine Physical Therapy Evaluation Physical Medicine Physical Therapy Evaluation 11604 03/07/2005 KIMBERLEY RUTLEDGE Taping Knee Taping Knee 96049 03/07/2005 KIMBERLEY RUTLEDGE Exercises A isted Exercises For ROM Exercises Assisted Exercises For ROM 59886 03/07/2005 KIMBERLEY RUTLEDGE [facility] Social History Combined list of available smoking, tobacco, and other social history from Department of Defense and Veterans Affairs facilities. Social History Type Response Date Comment Sourc e Tobacco smoking status NHIS VA-TOBACCO USER EVERY DAY 02/29/2024 [facility] History of tobacco use VA-TOBACCO USE > 15 LESS THAN 30 YEARS 02/29/2024 [facility] History of tobacco use VA-TOBACCO USE WI 30 MIN OF WAKEUP 03/02/2023 [facility] History of tobacco use VA-TOBACCO USER E VERY DAY 12/02/2021 [facility] History of tobacco use VA-TOBACCO USER E VERY DAY 11/25/2020 [facility] History of tobacco use VA-TOBACCO USE CO UNSEL NO 11/22/2018 [facility] History of tobacco use TOBACCO USER OFFE RED MEDS 11/23/2017 [facility] History of tobacco use TOBACCO OFFERED P T MEDS (PROVIDER) 09/11/2012 [facility] History of tobacco use TOBACCO OFFERED P T MEDS (PROVIDER) 12/06/2011 [facility] History of tobacco use TOBACCO OFFERED P T MEDS (PROVIDER) 08/01/2011 [facility] This section is an empty social history section. DoD Plan of Care List of future care activities from Department of Veterans Affairs facilities. Additional future care activities may be listed in the Assessment and Plan section. Date/Time Care Activity Care Activity Detail Facili ty 12/12/2024 AMBULATORY - MEDICINE AMBULATORY - MEDICI KRISTINE HOLT [facility] Advance Directives List of completed, amended, or rescinded Advance Directives on record at Department of Veterans Affairs facilities. An actual copy of the Directive is not included. Date Advance Directive Provider Source 10/24/2011 ADVANCE DIRECTIVE BOLIVAR SCHROEDER IS [place] [facility] 08/02/2011 ADVANCE DIRECTIVE DISCUSSION JEMMA DONALDSON [facility]
--- NOTE | 2024-12-09 09:36 | ECG_ITS ---
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 Measurements Intervals [place] Rate: 65 P: 60 NH: 166 QRS: -3 QRSD: 94 T: 5 QT: 376 QTc: 392 Interpretive Statements SINUS RHYTHM No previous ECG available for comparison Electronically Signed On 12-09-2024 23:01:24 CDT by Aston Chicas M.D. [email or web address]
--- OUTSIDE RECORDS SUMMARY | 2024-12-09 09:36 | XMS_ITS | Patient Health Record ---
Author Organization [facility] Address [address] [place] [address] Care Team Providers Care Pc Support Specialist Name Role Phone Hayes Wills Primary Care Provider [phone] Hayes Marroquin MD Unavailable Unavailable Reason For Referral No Information Problems No Known Problems Plan Of Treatment No Information Insurance Providers Payer Name Payer Address Payer Phone Subscriber Number Group Number Insured Name Patient Relationship to Insured Coverage Start Date Coverage End Date [employer] [address] [place] [phone] [id number] Javi Montes De Oca Self - patient is the insured 8
--- OUTSIDE RECORDS SUMMARY | 2024-12-09 09:36 | XMS_ITS | Clinical Summary ---
Author Organization [facility] Address [address] [facility] Attn: [place] [address] Care Team Providers Care Seating Upholsterer Name Role Phone Unavailable Primary Care Provider Unavailabl e Allergies No known active allergies Medications multivitamin (DAILY-BRAYAN) tablet Take 1 Tablet by mouth daily. 10/22/2017 Active omega-3 fatty acids-fish oil 300-1,000 mg Capsule Take by mouth daily. 10/22/2017 Active levothyroxine 200 mcg tablet Take 200 mcg by mouth daily in the morning. 07/11/2024 Active esomeprazole (NexIUM) 40 mg Capsule, Delayed Release(E.C.) Take 40 mg by mouth daily before breakfast. 02/29/2024 Active Active Problems Problem Noted Date Diagnosed Date Chewing tobacco dependence 10/22/2017 Tobacco use 10/22/2017 Encounters Date Type Department Care Team Description 10/07/2024 External Device Data [facility] ABSTRACTION Provider, Abstract 09/23/2024 External Device Data [facility] ABSTRACTION Provider, Abstract 09/09/2024 External Device Data [facility] ABSTRACTION Provider, Abstract from Last 3 Months Family History Medical History Relation Name Comments Diabetes Father Relation Name Status Comments Father Social History Tobacco Use Types Packs/Day Years Used Date Smoking Tobacco: Former Cigarettes Smokeless Tobacco: Current Alcohol Use Standard Drinks/Week Comments Yes 0 (1 standard drink = 0.6 oz pur e alcohol) Sex and Gender Information Value Date Recorded Sex Assigned at Not on file 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 Gender Identity Not on file Sexual Orientation Not on file Last Filed Vital Signs Vital Sign Reading Time Taken Comments Blood Pressure 126/80 08/07/2024 10:29 AM CDT Pulse - - Temperature 36.9 C (98.5 F) 10/22/2017 6:40 PM CDT Respiratory Rate 18 10/22/2017 6:40 PM CDT Oxygen Saturation - - Inhaled Oxygen Concentration - - Weight 106.2 kg (234 lb 1.6 oz) 025 10:29 AM CDT Height 180.3 cm (5' 11 ) 08/07/2024 10: 29 AM CDT Body Mass Index 32.65 08/07/2024 10:29 AM CDT Plan of Treatment Upcoming Encounters Date Type Department Care Team (Late st Contact Info) Description 04/09/2025 1:45 PM INTERNET WEBMASTER Appointment [facility] [address] [place] [id number] Sorin Figueroa MD [address] [place] [phone] Health Maintenance Due Date Last Done Comments Pre-Diabetes and Diabetes Screening 1985 HPV VACCINES (1 - Male 3-dose series) 02/10/1999 HEPATITIS B VACCINES (1 of 3 - 19+ 3-dose series) 11/2002 DTAP/TDAP/TD VACCINES (2 - Td or Tdap) 05/12/2023 COVID-19 Vaccine (2 - 2023- season) 01/06/202410/2020 INFLUENZA VACCINE (#1) [address] [place] [address] [address] [employer]
--- OUTSIDE RECORDS SUMMARY | 2024-12-09 09:37 | XMS_ITS | Encounter Summary ---
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
--- OUTSIDE RECORDS SUMMARY | 2024-12-09 09:37 | XMS_ITS | Clinical Summary ---
Author Organization [facility] Address [address] [place] [address] Care Team Providers Care Hardware Developer Name Role Phone Unavailable Primary Care Provider Unavailabl e Allergies No known active allergies Medications multivitamin (DAILY-BRAYAN) tablet Take 1 Tablet by mouth daily. Active omega-3 fatty acids-fish oil 300-1,000 mg Capsule Take by mouth daily. 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 Gender Identity Not on file Sexual Orientation Not on file Last Filed Vital Signs Vital Sign Reading Time Taken Comments Blood Pressure 145/87 10/22/2017 6:40 PM CDT Pulse - - Temperature 36.9 C (98.5 F) 10/22/2017 6:40 PM CDT Respiratory Rate 18 10/22/2017 6:40 PM CDT Oxygen Saturation 98% 10/22/2017 6:40 PM CDT Inhaled Oxygen Concentration - - Weight 104.3 kg (230 lb) 10/22/2017 4:35 PM CDT Height 180.3 cm (5' 11 ) 10/22/2017 4:35 PM CDT Body Mass Index 32.08 10/22/2017 4:35 PM CDT Plan of Treatment Health Maintenance Due Date Last Done Comments HPV VACCINES (1 - Male 3-dose series) 02/10/1999 DTAP/TDAP/TD VACCINES (1 - Tdap) 02/10/2003 HEPATITIS B VACCINES (1 of 3 - 19+ 3-dose series) 11/2002 INFLUENZA VACCINE (#1) 2024 Insurance [facility]
--- OUTSIDE RECORDS SUMMARY | 2024-12-09 09:37 | XMS_ITS | Encounter Summary ---
Author Organization [facility] Address [address] [place] [address] Care Team Providers Care Loss Control Representative Name Role Phone Unavailable Primary Care Provider Unavailabl e Encounter Details Date Type Department Care Team (Latest Contact Info) Description 12/21/[address] 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
--- OUTSIDE RECORDS SUMMARY | 2024-12-09 09:37 | XMS_ITS | Patient Health Record ---
Author Organization [facility] Address [address] [place] [address] Care Team Providers Care Transmitter Tester Name Role Phone [facility] Gaetano RIVAS Primary Care Provider Un available Elfego Crum Unavailable [phone] Reason For Referral No Information Medications Medication SIG (Take, Route, Frequency, Duration) Notes Start Date End Date Status Omeprazole Active Gabapentin 300 MG Capsule 1 capsule Oral ly Once a day; Duration: 14 days 01/29/2020 Active Fish Oil 1000 MG Capsule 1 capsule Orall y Twice a day Active Multivitamin Adult - Tablet as directed Orally Active Meloxicam 15 MG Tablet 1 tablet Orally O nce a day Active Social History Tobacco Use: Social History Observation Description Date Details (start date - stop date) Former Smoker NA - NA Social History Depression Screening Social Info Question Answer Notes PHQ-9 Little interest or pleasure in doing thin gs Not at all Feeling down, depressed, or hopeless Not at all Trouble falling or staying asleep, or sleeping t oo much More than half the days Feeling tired or having little energy Several da ys Poor appetite or overeating Not at all Feeling bad about yourself, or that you are a failure, or have let yourself or your family down Not at all Trouble concentrating on thi ngs, such as reading the newspaper or watching television Not at all Moving or speaking so slowly that other people could have noticed. Or the opposite ? being so fidgety or restless that you have been moving around a lot more than usual Not at all Thoughts that you would be b jake off , or of hurting yourself in some way Not at all Total Score 3 Interpretation Minimal Depression Drugs/Alcohol: Social Info Question Answer Notes Alcohol Screen (Audit-C) Did you have a drink containing alcohol in the past year? Yes How often did you have a drink containing alcohol in the past year? Monthly or less (1 point) Points 1 Interpretation Negative Drugs Have you used drugs other than those for medical reasons in the past 12 months? No Tobacco Use: Social Info Question Answer Notes xTobacco Use/Smoking Are you a former smoker Additional Findings: Tobacco User Chews tobacco Problems Problem Type SNOMED Code ICD Code Onset Dates Problem Status W/U Status Risk Notes Problem Chronic pain (54230115) Other chronic pain (G89.29) Active confirmed Plan Of Treatment No Information Insurance Providers Payer Name Payer Address Payer Phone Subscriber Number Group Number Insured Name Patient Relationship to Insured Coverage Start Date Coverage End Date [employer] [address] [place] [phone] [id number] Javi Montes De Oca Self - patient is the insured Medical (General) History Medical History History ICD Code chicken pox arthritis migraine headaches hernia back pain bronchitis anxiety depression GERD Surgical History Surgery Date(Month/Year) vasectomy 04/2019 umbilical hernia 03/2016
[2024-12-09 09:38] VITALS: BP 138/95; PULSE 66; RESP 16; TEMP 36.7; O2SAT 98
--- OUTSIDE RECORDS SUMMARY | 2024-12-09 09:38 | XMS_ITS | Encounter Summary ---
Author Organization [facility] Address [address] [place] [address] Care Team Providers Care Roll Forming Machine Set Up Mechanic Name Role Phone Unavailable Primary Care Provider Unavailabl e Encounter Details Date Type Department Care Team (Latest Contact Info) Description 04/27/1997 Outpatient Historical [facility] Pediatrics-[facility] [place] [address] [place] [address] Trip Herrera MD NO ADDRESS ON FILE Attention deficit disorder with hyperactivity(314.01 ) (Primary Dx) Social History Tobacco Use Types Packs/Day Years Used Date Smoking Tobacco: Never Assessed Sex and Gender Information Value Date Recorded Sex Assigned at Not on file Legal Sex Male 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
--- OUTSIDE RECORDS SUMMARY | 2024-12-09 09:38 | XMS_ITS | Encounter Summary ---
Author Organization [facility] Address [address] [place] [address] Care Team Providers Care Front Office Spec Name Role Phone Unavailable Primary Care Provider Unavailabl e Encounter Details Date Type Department Care Team (Latest Contact Info) Description 11/01/1998 Outpatient Historical [facility] [place] [address] [place] [address] Trip Herrera MD NO ADDRESS ON FILE Unspecified asthma(493.90) (Primary Dx); Attention deficit disorder with hyperactivity(314.01 ) Social History Tobacco Use Types Packs/Day Years Used Date Smoking Tobacco: Never Assessed Sex and Gender Information Value Date Recorded Sex Assigned at Not on file Legal Sex Male 4:17 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
--- OUTSIDE RECORDS SUMMARY | 2024-12-09 09:38 | XMS_ITS | Encounter Summary ---
Author Organization [facility] Address [address] [place] [address] Care Team Providers Care Automotive Sales Manager Name Role Phone Unavailable Primary Care Provider Unavailabl e Encounter Details Date Type Department Care Team (Latest Contact Info) Description 04/27/1999 Outpatient Historical [facility] [place] [address] [place] [address] Trip Herrera MD NO ADDRESS ON FILE Attention deficit disorder with hyperactivity(314.01 ) (Primary Dx) Social History Tobacco Use Types Packs/Day Years Used Date Smoking Tobacco: Never Assessed Sex and Gender Information Value Date Recorded Sex Assigned at Not on file 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
--- OUTSIDE RECORDS SUMMARY | 2024-12-09 09:38 | XMS_ITS | Encounter Summary ---
Author Organization [facility] Address [address] [place] [address] Care Team Providers Care Musical Instrument Supervisor Name Role Phone Unavailable Primary Care Provider Unavailabl e Encounter Details Date Type Department Care Team (Latest Contact Info) Description 05/03/1998 Outpatient Historical [facility] Pediatrics[facility] [place] [address] [place] [address] Trip Herrera MD NO ADDRESS ON FILE Attention deficit disorder with hyperactivity(314.01 ) (Primary Dx) Social History Tobacco Use Types Packs/Day Years Used Date Smoking Tobacco: Never Assessed Sex and Gender Information Value Date Recorded Sex Assigned at Not on file 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
--- OUTSIDE RECORDS SUMMARY | 2024-12-09 09:38 | XMS_ITS | Encounter Summary ---
Author Organization [facility] Address [address] [place] [address] Care Team Providers Care Perinatal Breastfeeding Assistant Name Role Phone Unavailable Primary Care Provider Unavailabl e Encounter Details Date Type Department Care Team (Latest Contact Info) Description 10/15/1998 Outpatient Historical [facility] [place] [address] [place] [address] Trip Herrera MD NO ADDRESS ON FILE Unspecified asthma(493.90) (Primary Dx); Attention deficit disorder with hyperactivity(314.01 ) Social History Tobacco Use Types Packs/Day Years Used Date Smoking Tobacco: Never Assessed Sex and Gender Information Value Date Recorded Sex Assigned at Not on file 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
--- OUTSIDE RECORDS SUMMARY | 2024-12-09 09:38 | XMS_ITS | Encounter Summary ---
Author Organization [facility] Address [address] [place] [address] Care Team Providers Care Shuttle Spotter Name Role Phone Unavailable Primary Care Provider Unavailabl e Encounter Details Date Type Department Care Team (Latest Contact Info) Description 10/05/1997 Outpatient Historical [facility] Pediatrics[facility] [place] [address] [place] [address] Trip Herrera MD NO ADDRESS ON FILE Attention deficit disorder with hyperactivity(314.01 ) (Primary Dx) Social History Tobacco Use Types Packs/Day Years Used Date Smoking Tobacco: Never Assessed Sex and Gender Information Value Date Recorded Sex Assigned at Not on file 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
--- NOTE | 2024-12-09 09:44 | ED_ITS ---
HPI - Chest Pain 2 General: Chief Complaint: Chest Pain Stated Complaint: dr anthony mills, med reaction, dizzy, high hr Time Seen by Provider: 12/09/24 09:41 History of Present Illness: 39-year-old male presents emergency room Cardiografin heart rate and palpitations. Patient has a history of Contreras's. He previously was on p.o. Synthroid and then about 3 to 4 weeks ago he switched it to a once a week injection. 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 Contact Dr. Jordan's office they directed him to the emergency room he has no chest pain or palpitations now he is resting comfortably he has not recently been ill. No other medication changes recently Associated symptoms: Deny abdominal pain, dyspnea or fever(s) Related Data Home Medications ?Medication ?Instructions ?Recorded ?Confirmed esomeprazole magnesium 40 mg 40 mg PO DAILY 10/17/23 0 12/09/24 capsule,delayed release multivitamin 1 tab PO DAILY 10/17/2309/28 hydroxyzine HCl 25 mg tablet mg PO 10/06/24 12/09/24 Previous Rx's ?Medication ?Instructions ?Recorded fluoxetine 10 mg capsule (Prozac) 10 mg PO DAILY #30 c aps 11/13/24 Allergies Allergy/AdvReac Type Severity Reaction Status Date / Time No Known Allergies Allergy Verified 11/28/24 09:04 Review of Systems 2 Const: Denies: fever(s) or chills Card: Denies: chest pain Resp: Denies: dyspnea GI: Denies: abdominal pain : Denies: dysuria, urinary frequency or urinary urgency Musc: Denies: neck pain or back pain Skin/Breast: Denies: rash PFSH ED 2 PFSH: Medical History GERD (gastroesophageal reflux disease) Psychiatric care 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 Surgical History History of vasectomy History of hernia surgery Family History Mother Mcnamara's palsy Social History Smoking and tobacco/nicotine status: never used tobacco/nicotine Alcohol intake: current Alcohol intake frequency: holidays/special occasions only Substance/Drug Use: never Marital status: service: Yes Current occupational status: employed Physical Exam 2 Const: GENERAL APPEARANCE: cooperative ORIENTATION/CONSCIOUSNESS: Yes awake, Yes oriented to person, Yes oriented to place and Yes oriented to time HENMT: COMMON NORMALS: normocephalic, atraumatic and hearing grossly normal bilaterally HEAD & SCALP: normocephalic and atraumatic Resp: COMMON NORMALS: normal respiratory effort, No retractions, No use of accessory muscles and clear to auscultation bilaterally AUSCULTATION: clear to auscultation bilaterally Cardio: COMMON NORMALS: regular rate, regular rhythm and No murmurs present (Cardio) RATE: regular rate RHYTHM: regular rhythm GI: COMMON NORMALS: Soft to palpation and No hepatosplenomegaly present A USCULTATION: Yes normoactive bowel sounds PALPATION: Yes Soft to palpation, No Tenderness to palpation present (GI), No Guarding due to palpation present (GI) and Yes No hepatosplenomegaly present Extremity: COMMON NORMALS: normal to inspection, capillary refill normal, no clubbing, cyanosis or edema, no calf tenderness and no pedal edema Neuro: SENSORIUM/ORIENTATION: Yes oriented to person, Yes oriented to place and Yes oriented to time Skin: COMMON NORMALS: no rashes or lesions noted GENERAL SKIN EXAM: no rashes or lesions noted Course 2 Vital Signs: Vital signs: Vital Signs Temperature 98.0 F 12/09/24 09:38 Pulse Rate 62 12/09/24 11:52 Respiratory Rate 16 12/09/24 11:52 Blood Pressure 121/80 12/09/24 11:52 Pulse Oximetry 93 12/09/24 11:52 Oxygen Delivery Me thod Room Air 12/09/24 11:27 MDM - Chest Pain Medical Decision Making EKG and cardiac enzymes rhythm monitoring did not show any significant normality TSH is still elevated contact Dr. Carson she has so we discharged the patient she will see him in the clinic today and work on his Synthroid infusion dosing to get him to euthyroid. Discussed with the patient he is agreeable to this discharge Dr. Carson's office. Advised patient if he has worsening or change of symptoms or recurrence return to the emergency room. Medical Records Left Ventricle Normal left ventricular size. LV systolic function is normal with EF of 55-60%. No regional wall motion abnormalities. Normal diastolic filling pattern. Right Ventricle The right ventricle is normal in size and function. Right Atrium The right atrium is normal in size. Left Atrium The left atrium is normal in size. Mitral Valve Structurally normal mitral valve without significant stenosis or prolapse. There is trace mitral regurgitation. Aortic Valve Structurally normal aortic valve without significant sclerosis or stenosis. There is no aortic regurgitation. Tricuspid Valve Structurally normal tricuspid valve without significant stenosis or regurgitation. Insufficient TR jet to calculate RVSP Pulmonic Valve Structurally normal pulmonic valve without significant stenosis. There is no pulmonic regurgitation. Pericardium Normal pericardium without effusion. Aorta Normal ascending aorta dimension. CONCLUSIONS LV systolic function is normal with EF of 55-60% Diastolic function is normal Trace mitral regurgitation No comparison studies are available Lab Data 12/09/24 10:25 12/09/24 10:25 Radiology Impressions Chest X-Ray 12/09/24 10:16 IMPRESSION: Stable chest without acute abnormality. Laboratory Results WBC 6.75 10^3/uL (3.29-11.43) 12/09/24 10:25 RBC 5.49 10^6/uL (3.85-5.65) 12/09/24 10:25 Hgb 15.70 g/dL (11.27-16.99) 12/09/24 10:25 Hct 46.0 % (37-53) 12/09/24 10:25 MCV 83.8 fl (82-101) 12/09/24 10:25 MCH 28.6 pg (27-33) 12/09/24 10:25 MCHC 34.1 g/dL (30-55) 12/09/24 10:25 RDW 12.3 % (12.1-15.1) 12/09/24 10:25 Plt Count 259 10^3/cmm (157-399) 12/09/24 10:25 MPV 9.3 fL (7.4-10.4) 12/09/24 10:25 Neut % (Auto) 52.3 % 12/09/24 10:25 Lymph % (Auto) 34.4 % 12/09/24 10:25 Sumner % (Auto) 9.3 % 12/09/24 10:25 Eos % (Auto) 3.6 % 12/09/24 10:25 Baso % (Auto) 0.4 % 12/09/24 10:25 Neut # (Auto) 3.53 10^3/uL (1.8-7.7) 12/09/24 10:25 Lymph # (Auto) 2.3 10^3/uL (0.8-4.8) 12/09/24 10:25 Sumner # (Auto) 0.6 10^3/uL (0.2-0.9) 12/09/24 10:25 Eos # (Auto) 0.2 10^3/uL (0.0-0.8) 12/09/24 10:25 Baso # (Auto) 0.0 10^3/uL (0.0-0.1) 12/09/24 10:25 Nucleated RBC % (auto) 0 % 12/09/24 10:25 Nucleated RBCs # 0.0 /100WBC 12/09/24 10:25 Sodium 140 mmol/L (136-145) 12/09/24 10:25 Potassium 3.9 mmol/L (3.5-5.1) 12/09/24 10:25 Chloride 103 mmol/L (98-107) 12/09/24 10:25 Carbon Dioxide 26 mmol/L (22-29) 12/09/24 10:25 Anion Gap 14.9 (5-19) 12/09/24 10:25 BUN 16 mg/dL (6-20) 12/09/24 10:25 Creatinine 0.8 mg/dL (0.7-1.2) 12/09/24 10:25 GFR Calculation 107.1 mL/min (90-130) 12/09/24 10:25 Glucose 99 mg/dL (65-115) 12/09/24 10:25 Calculated Osmolality 291 mOsm/kg (285-295) 12/09/24 10:25 Calcium 9.9 mg/dL (8.5-10.5) 12/09/24 10:25 Total Bilirubin 0.5 mg/dL (0.15-1.2) 12/09/24 10:25 AST 17 U/L (0-40) 12/09/24 10:25 ALT 20 U/L (0-41) 12/09/24 10:25 Alkaline Phosphatase 50 U/L (40-130) 12/09/24 10:25 Troponin T Baseline < 6 ng/L (0-15) 12/09/24 10:25 Total Protein 6.7 g/dL (6.6-8.7) 12/09/24 10:25 Albumin 4.6 g/dL (3.5-5.2) 12/09/24 10:25 Globulin 2.1 g/dL (1.3-4.6) 12/09/24 10:25 TSH 12.41 uIU/mL (0.27-4.20) H 12/09/24 10:25 Free T4 1.39 ng/dL (0.82-1.77) 12/09/24 10:25 All radiology interpretation(s) finalized by discharge EKG Data EKG 1: Interpretation: EKG 12/09/2024 sinus rhythm with a rate of 65 NV interval [address] QTc [address] changes. Isolated T wave inversion in 3 no signs of ischemia. Discharge Plan Discharge Patient Disposition: Home Clinical Impression: Hypothyroid, Contreras's disease, Palpitations Condition: Stable Prescriptions: No Action multivitamin Tablet 1 tab PO DAILY esomeprazole magnesium 40 mg capsule,delayed release(DR/EC) 40 mg PO DAILY hydroxyzine HCl 25 mg tablet PO fluoxetine [Prozac] 10 mg capsule 10 mg PO DAILY Qty: 30 1RF Discharge Orders: Discharge ED (Routine); Ordered 12/09/24 Ordered By: Chino Peguero Referrals: Yaneth Eastman FNP [Primary Care Provider, Nurse Practitioner] Discharge Diet: Usual diet Discharge Activity: Resume usual activity Patient Instructions: Opioid Safety, Pain Management, Patient Portal & Padmini Instructions Activity Restrictions/Additional Instructions: Thank you for choosing [facility] for your healthcare needs today. It is very important that you follow up as instructed or that you return to the Emergency Department should you have concerns or if your condition changes or worsens in any way. You are seen in the emergency room with complaints of palpitations and rapid heart rate while you are in the emergency room your EKG and the monitor strips did not show any rapid heart rates effective majority of time you were slightly slow. Your TSH is still elevated suggesting you may need more thyroid replacement. I discussed with Dr. Carson she asked us to discharge her from the emergency room she would see you today in her office and make adjustments to your regimen. At this time no emergent conditions present. Print Language: Malawian Coding Level of Care Code ED Shortage Worker for Susanna Christian
--- NOTE | 2024-12-09 10:16 | XR_ITS ---
WS: [id number] XR chest 1V portable [id number] REASON FOR EXAM: Palpitations rapid heart rate FINDINGS: Chest is unchanged compared to 09/08/2019. Heart and mediastinum are within normal limits. Calcified granulomatous disease bilaterally. No acute pulmonary parenchymal or pleural abnormality. Bony thorax is intact without significant focal abnormality. XR/XR chest 1V portable [id number] IMPRESSION: Stable chest without acute abnormality.
[2024-12-09 10:49] LABS: Hematocrit 46.0 % (37-53); Hemoglobin 15.70 g/dL (11.27-16.99); Mean Corpuscular HGB Conc 34.1 g/dL (30-55); Mean Corpuscular Hemoglobin 28.6 pg (27-33); Mean Corpuscular Volume 83.8 fl (82-101); Nucleated Red Blood Cells % 0 %; Platelet Count 259 10^3/cmm (157-399); Red Blood Count 5.49 10^6/uL (3.85-5.65); White Blood Count 6.75 10^3/uL (3.29-11.43)
[2024-12-09 11:01] LABS: Troponin(5th) Baseline < 6 ng/L (0-15)
[2024-12-09 11:12] LABS: Alanine Aminotransferase 20 U/L (0-41); Albumin Level 4.6 g/dL (3.5-5.2); Alkaline Phosphatase 50 U/L (40-130); Anion Gap 14.9 (5-19); Aspartate Amino Transferase 17 U/L (0-40); Blood Urea Nitrogen 16 mg/dL (6-20); Calcium 9.9 mg/dL (8.5-10.5); Carbon Dioxide 26 mmol/L (22-29); Chloride 103 mmol/L (98-107); Creatinine Clr Calc Pharmacy 146.9153; Free T4 Free Thyroxine 1.39 ng/dL (0.82-1.77); Globulin 2.1 g/dL (1.3-4.6); Glucose 99 mg/dL (65-115); Osmolality Calculated 291 mOsm/kg (285-295); Potassium 3.9 mmol/L (3.5-5.1); Sodium 140 mmol/L (136-145); Thyroid Stimulating Hormone 12.41 uIU/mL (0.27-4.20); Total Protein 6.7 g/dL (6.6-8.7)
[2024-12-09 11:27] VITALS: BP 139/78; PULSE 66; RESP 16; O2SAT 94
[2024-12-09 11:52] VITALS: BP 121/80; PULSE 62; RESP 16; O2SAT 93
== END 2024-12-09 11:58 | disposition home or self-care (01) ==
PROVIDERS: Emergency Provider Family Medicine; PCP Nurse Practitioner
DX: E05.90 Thyrotoxicosis, unspecified without thyrotoxic crisis or storm (principal); E06.3 Autoimmune thyroiditis; R00.2 Palpitations
CPT/HCPCS: 71045; 80053; 84439; 84443; 84484; 85025; 93005; 99215; 99285

== ENCOUNTER → 2024-12-17 13:52 | Outpatient (BNVA) | payer OTHER, SELFPAY | PROVIDERS: PCP Nurse Practitioner; Visit Provider Anesthesiology Pain Medicine | DX: M47.816 Spondylosis without myelopathy or radiculopathy, lumbar region (principal); M54.40 Lumbago with sciatica, unspecified side; M54.9 Dorsalgia, unspecified | CPT/HCPCS: 64493; 64494; 64495; J1010; J9999 ==

== ENCOUNTER 2024-12-18 14:15 | Oncology outpatient (recurring) (ONCR) | payer OTHER, SELFPAY ==
[2024-12-11 14:13] VITALS: BP 120/73; PULSE 85; O2SAT 93
[2024-12-11] MEDS: levothyroxine 200 mcg SDV 650 MCG IM (14:26)
== END 2025-01-04 23:59 | disposition home or self-care (01) ==
PROVIDERS: PCP Nurse Practitioner; Visit Provider Internal Medicine
DX: Z53.9 Procedure and treatment not carried out, unspecified reason (principal)
CPT/HCPCS: 96372; J0650

== ENCOUNTER → 2025-01-01 15:04 | Outpatient (BNVA) | payer OTHER, SELFPAY | PROVIDERS: PCP Nurse Practitioner; Visit Provider Nurse Practitioner Family | DX: M54.42 Lumbago with sciatica, left side (principal); M54.41 Lumbago with sciatica, right side; G89.29 Other chronic pain | CPT/HCPCS: 99214 ==

== ENCOUNTER 2025-01-23 11:48 | Outpatient (CLI) | payer OTHER, SELFPAY ==
--- NOTE | 2025-01-23 | ECG_ITS ---
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 Interpretive Statements EXERCISE STRESS TEST EXERCISE DATA: The patient was exercised by Jean protocol. Baseline heart rate was 63 beats per minute. Baseline blood pressure was 126/83 millimeters of mercury. Maximal predicted heart rate was 180 beats per minute. Maximum heart rate achieved was 168 which was 93% of the maximum predicted heart rate. Maximum blood pressure was 180/65 millimeters of mercury. Total exercise time was 9 minutes. Maximum METs achieved was 10.2. The reason for ending the test was completion of protocol. The patient complained of shortness of breath during the stress test, which then resolved at the end of the test. ELECTROCARDIOGRAM: BASELINE: Showed sinus rhythm, normal axis, no significant ST-T changes at the baseline noted. [] EXERCISE: At the peak exercise level, [] No significant ST-T changes suggestive of ischemia noted. [] RECOVERY: During the recovery period, heart rate dropped appropriately. No significant ST-T changes in the recovery suggestive of ischemia noted. [] CONCLUSION: 1. Exercise capacity is good. 2. Heart rate response was appropriate 3. Blood pressure response was appropriate 4. Symptoms not suggestive of ischemia. 5. Stress test does not show evidence of ischemia Electronically Signed On 01-24-2025 23:50:21 CDT by Patrick Epstein M.D. [email or web address]
[2025-01-23 12:34] VITALS: BP 175/63; PULSE 97
== END 2025-01-23 11:49 | disposition home or self-care (01) ==
LOC: CDL 11:50
PROVIDERS: PCP Nurse Practitioner; Visit Provider Nurse Practitioner
DX: I49.9 Cardiac arrhythmia, unspecified (principal)
CPT/HCPCS: 93017

== ENCOUNTER → 2025-01-27 13:48 | Outpatient (BNVA) | payer OTHER, SELFPAY | PROVIDERS: PCP Nurse Practitioner; Visit Provider Anesthesiology Pain Medicine | DX: M47.816 Spondylosis without myelopathy or radiculopathy, lumbar region (principal) | CPT/HCPCS: 64493; 64494; 64495; J3490; J9999 ==

== ENCOUNTER → 2025-02-04 11:07 | Outpatient (BNVA) | payer OTHER, SELFPAY | PROVIDERS: PCP Nurse Practitioner; Visit Provider Nurse Practitioner Family | DX: M54.42 Lumbago with sciatica, left side (principal); M54.41 Lumbago with sciatica, right side; G89.29 Other chronic pain | CPT/HCPCS: 99214 ==

== ENCOUNTER → 2025-03-11 13:18 | Outpatient (BNVA) | payer OTHER, SELFPAY | PROVIDERS: PCP Nurse Practitioner; Visit Provider Anesthesiology Pain Medicine | DX: M47.816 Spondylosis without myelopathy or radiculopathy, lumbar region (principal) | CPT/HCPCS: 64635; 64636; J1100; J9999 ==

== ENCOUNTER → 2025-03-25 12:54 | Outpatient (BNVA) | payer OTHER, SELFPAY | PROVIDERS: PCP Nurse Practitioner; Visit Provider Anesthesiology Pain Medicine | DX: M47.816 Spondylosis without myelopathy or radiculopathy, lumbar region (principal) | CPT/HCPCS: 64635; 64636; J1100; J9999 ==

== ENCOUNTER → 2025-04-08 13:14 | Outpatient (BNVA) | payer OTHER, SELFPAY | PROVIDERS: PCP Nurse Practitioner; Visit Provider Nurse Practitioner Family | DX: M54.42 Lumbago with sciatica, left side (principal); M54.41 Lumbago with sciatica, right side; G89.29 Other chronic pain | CPT/HCPCS: 99214 ==